=== PATIENT | male | born 1935 | race Caucasian/White ===

== ENCOUNTER → 2018-06-09 07:36 | Outpatient (CLI) | payer MEDICARE, OTHER, SELFPAY ==
[2018-06-09 08:48] LABS: Add Manual Diff / Slide Review NO; Basophils Percent Auto 0.5 % (0-2); Eosinophils Percent Auto 8.2 % (2-4); Hematocrit 46.5 % (41-53); Hemoglobin 15.9 g/dL (13.5-17.5); Lymphocytes Percent Auto 21.2 % (25-40); Mean Corpuscular HGB Conc 34.1 % (30-36); Mean Corpuscular Volume 93.8 fL (80-100); Neutrophils Absolute Auto 3700 /uL (3000-5900); Neutrophils Percent Auto 59.1 % (50-75); Platelet Count 131 X10^3/uL (150-400); Red Blood Cell Count 4.96 X10^6/uL (4.5-5.9); Red Cell Distribution Width 13.2 % (11.6-14.8); White Blood Cell Count 6.3 X10^3/uL (4.5-11.0)
[2018-06-09 08:56] LABS: Alanine Aminotransferase 32 IU/L (21-72); Albumin 4.4 g/dL (3.5-5.0); Albumin Globulin Ratio 1.4 (1.0-2.8); Alkaline Phosphatase 76 U/L (38-126); Aspartate Aminotransferase 34 IU/L (17-59); BUN Creatinine Ratio 18.2 (6-22); Bilirubin Total 1.1 mg/dL (0.2-1.3); Blood Urea Nitrogen 20 mg/dL (9-20); Calcium 9.7 mg/dL (8.4-10.2); Carbon Dioxide 32 mmol/L (22-32); Chloride 101 mmol/L (98-107); Cholesterol 144 mg/dL (140-199); Estimated Glomerular Filt Rate > 60.0 mL/min (>60); Globulin 3.1 g/dL (1.7-4.1); Glucose 83 mg/dL (80-110); HDL Cholesterol 46 mg/dL (40-60); HEMOLYSIS 22 (0-50); LDL Cholesterol Calculated 83 mg/dL (<100); Potassium 4.1 mmol/L (3.4-5.1); Sodium 142 mmol/L (137-145); Total Protein 7.5 g/dL (6.3-8.2); Triglycerides 74 mg/dL (35-150)
[2018-06-09 09:22] LABS: Prostate Specific Antigen Scrn 1.59 ng/mL (0.1-4.0)
[2018-06-09 09:42] LABS: Thyroid Stimulating Hormone 1.16 uIU/mL (0.47-4.68)
== END ==
PROVIDERS: Family Provider Family Medicine; PCP Family Medicine; Visit Provider Family Medicine
DX: E78.5 Hyperlipidemia, unspecified (principal); I10 Essential (primary) hypertension; I25.10 Atherosclerotic heart disease of native coronary artery without angina pectoris; N19 Unspecified kidney failure; N40.0 Benign prostatic hyperplasia without lower urinary tract symptoms; Z12.5 Encounter for screening for malignant neoplasm of prostate
CPT/HCPCS: 36415; 80053; 80061; 84443; 85025; G0103

== ENCOUNTER → 2018-08-22 14:19 | Outpatient (CLI) | payer MEDICARE, OTHER, SELFPAY ==
[2018-08-22 15:21] LABS: Add Manual Diff / Slide Review NO; Basophils Percent Auto 0.6 % (0-2); Eosinophils Percent Auto 6.1 % (2-4); Hemoglobin 14.4 g/dL (13.5-17.5); Lymphocytes Percent Auto 22.8 % (25-40); Mean Corpuscular HGB Conc 33.5 % (30-36); Mean Corpuscular Hemoglobin 31.4 PG (26-34); Mean Corpuscular Volume 93.7 fL (80-100); Monocytes Percent Auto 11.4 % (3-14); Neutrophils Absolute Auto 3700 /uL (3000-5900); Neutrophils Percent Auto 59.1 % (50-75); Platelet Count 157 X10^3/uL (150-400); Red Blood Cell Count 4.59 X10^6/uL (4.5-5.9); Red Cell Distribution Width 12.9 % (11.6-14.8); White Blood Cell Count 6.3 X10^3/uL (4.5-11.0)
[2018-08-22 15:50] LABS: Alanine Aminotransferase 26 IU/L (21-72); Albumin Globulin Ratio 1.3 (1.0-2.8); Alkaline Phosphatase 64 U/L (38-126); Aspartate Aminotransferase 24 IU/L (17-59); BUN Creatinine Ratio 22.5 (6-22); Bilirubin Total 0.7 mg/dL (0.2-1.3); Blood Urea Nitrogen 27 mg/dL (9-20); Carbon Dioxide 26 mmol/L (22-32); Chloride 103 mmol/L (98-107); Cholesterol 161 mg/dL (140-199); Glucose 98 mg/dL (80-110); HDL Cholesterol 39 mg/dL (40-60); HEMOLYSIS < 15 (0-50); LDL Cholesterol Calculated 102 mg/dL (<100); Potassium 4.2 mmol/L (3.4-5.1); Sodium 140 mmol/L (137-145); Triglycerides 98 mg/dL (35-150)
[2018-08-22 16:20] LABS: Thyroid Stimulating Hormone 0.84 uIU/mL (0.47-4.68)
== END ==
PROVIDERS: Family Provider Family Medicine; PCP Family Medicine; Visit Provider Family Medicine
DX: R42 Dizziness and giddiness (principal); E78.2 Mixed hyperlipidemia; Z79.899 Other long term (current) drug therapy
CPT/HCPCS: 36415; 80053; 80061; 84443; 85025

== ENCOUNTER 2019-03-02 12:21 | Day surgery (SDC) | payer MEDICARE, OTHER, SELFPAY ==
[2019-03-02] MEDS: SODIUM CHLORIDE 0.9% 1,000 ML 200 ML IV (12:46)
[2019-03-02 12:57] VITALS: BP 164/89; PULSE 73; RESP 16; TEMP 36.6; O2SAT 98; BMI 23.3
--- NOTE | 2019-03-02 14:14 | PM.HP.1 ---
History of Present Illness Date Patient Seen: 03/02/19 Time Patient Seen: 13:20 Chief complaint: [id number] Narrative: A 3-year-old gentleman here for screening colonoscopy. No history of colon polyps, no personal history of colon cancer Suspected mother may have had colon cancer -unsure Has been less than 10 years since last colonoscopy The tolerated prep Patient History Medical History Cancer of kidney (Chronic ~1999) Coronary artery disease (Chronic ~2000) Melanoma (Chronic ~2014) Vertigo (Chronic ~2015) Surgical History Anesthesia (Resolved) History of kidney surgery (Resolved ~1999) Surgical procedure planned (Resolved ~2000) Family History (Updated 06/14/17 @ 00:00 by Conversion Provider) Brother Heart disease Father Heart disease Mother Stroke Social History household members: spouse Smoking Status: Never smoker Family & Social History Family History Brother Heart disease Father Heart disease Mother Stroke Social History: household members spouse Tobacco & Substance use: Smoking Status Never smoker Meds Home Medications Medication Instructions Recorded Confirmed Type ASPIRIN (Aspir-Low) 81 mg PO Q DAY #0 07/17/11 03/02/19 History Calcium/Vitamin D (#CALCIUM + D 1 tab PO DAILY #0 07/17/11 03/02/19 History 600 MG-200 IU) pravastatin 10 mg tablet 10 mg PO DAILY #90 tab 09/29/18 03/02/19 Rx lisinopril [Prinivil] 20 mg PO Q DAY #90 tab 11/28/18 03/02/19 Rx Allergies Allergy/AdvReac Type Severity Reaction Status Date / Time No Known Drug Allergies Allergy Unknown Verified 03/02/19 13:10 [NO KNOWN DRUG ALLERGIES] Review of Systems Constitutional Constitutional: Denies fever(s) Eyes Eyes: Denies bulging eyes ENT Ears, Nose, Mouth, and Throat: No lip swelling Cardiovascular Cardiovascular: Denies generalize swelling Respiratory Respiratory: Denies stridor Gastrointestinal Gastrointestinal: Denies coffee ground emesis Musculoskeletal Musculoskeletal: Denies loss of height Integumentary/Breasts Skin/Breast: Denies wounds Neurologic Neurologic: Denies abnormal speech and Denies confusion Psychiatric Psychiatric: Denies confusion Endocrine Endocrine: Denies deepening of the voice Hematologic/Lymphatic Hematologic/Lymphatic: Denies lymphadenopathy Allergic/Immunologic Allergic/Immunologic: Denies lip swelling Exam Vital Signs (past 8 hours): - 03/02/19 12:57 Temperature 97.8 F Pulse Rate 73 Respiratory Rate 16 Blood Pressure 164/89 H Pulse Oximetry 98 Oxygen Delivery Method Room Air Const General: cooperative and healthy appearing Orientation: alert HENMT Head: normal to inspection Nose: nares normal Mouth: oral mucosae normal and lip normal Eyes Eyelids: eyelids normal Conjunctivae: conjunctivae normal Sclera: sclerae normal Neck Neck: supple and other (No thyromegally) Chest Chest: other (LCTAB , regular respiratory effort) Cardio Rhythm: regular rhythm Heart Sounds: S1 normal, S2 normal, no gallops, no murmurs and no rubs GI Other: Abdomen soft nontender nondistended well healed port site incisional scars Skin General: no rashes or lesions noted Neuro General: alert and awake Psych Appearance: grossly normal Affect: normal affect Assessment & Plan Assessment & Plan narrative: Screening colonoscopy today risks of endoscopy including bleeding, infection, perforation, non identification of lesion, possible , hypoxia all discussed Patient ready to proceed
[2019-03-02] MEDS: MIDAZOLAM 5 MG/5 ML VIAL IV (15:06)
[2019-03-02] MEDS: fentaNYL 250 MCG/5 ML INJ IV (15:07)
--- NOTE | 2019-03-02 15:30 | PM.OP.ENDO ---
Operative Date/Time/Diagnoses Date of procedure: 03/02/19 Time of procedure: 15:00 Pre-op diagnosis: Screening colonoscopy Post-op diagnosis: same Procedure & Clinicians Study performed: Screening colonoscopy Same procedure as scheduled: Yes Indications: Average risk colorectal cancer Surgeon: Chevy Mariscal Procedure Notes SCOAP/Timeout: Completed Procedure in detail: Patient was brought to the endoscopy suite, he was sedated with midazolam and fentanyl, prior to this a time-out was completed. a digital rectal exam was performed there were no lesions within the rectal vault. The anal derm appeared healthy. 160 cm colonoscope was advanced through the rectum up through the rectosigmoid junction through the transverse colon. There was 2 or 3 diverticula seen. We advanced up the left colon through the splenic flexure and into the triangular folds of the transverse colon. The hepatic flexure was quite difficult to negotiate but were able to. The cecum was reached appendiceal orifice was clearly identified along with the [place] foot. Scope withdrawn slowly. no lesions were identified Prep adequate Scope withdrawal time: 20 min Sedation minutes: 75 Findings: diverticulosis Specimen(s): none sent Complications: none Impression: Unconcerning screening colonoscopy Recommendations: Other recommendation (Given this patient's age is 83, absence of pathology colonoscopy today-does not need further screening colonoscopy) Follow up: as needed Disposition: PACU
--- NOTE | 2019-03-02 15:35 | P.OP.ENDO_ITS ---
Operative Date/Time/Diagnoses Date of procedure: 03/02/19 Time of procedure: 15:00 Pre-op diagnosis: Screening colonoscopy Post-op diagnosis: same Procedure & Clinicians Study performed: Screening colonoscopy Same procedure as scheduled: Yes Indications: Average risk colorectal cancer Surgeon: Chevy Mariscal Procedure Notes SCOAP/Timeout: Completed Procedure in detail: Patient was brought to the endoscopy suite, he was sedated with midazolam and fentanyl, prior to this a time-out was completed. a digital rectal exam was performed there were no lesions within the rectal vault. The anal derm appeared healthy. 160 cm colonoscope was advanced through the rectum up through the rectosigmoid junction through the transverse colon. There was 2 or 3 diverticula seen. We advanced up the left colon through the splenic flexure and into the triangular folds of the transverse colon. The hepatic flexure was quite difficult to negotiate but were able to. The cecum was reached appendiceal orifice was clearly identified along with the [place] foot. Scope withdrawn slowly. no lesions were identified Prep adequate Scope withdrawal time: 20 min Sedation minutes: 75 Findings: diverticulosis Specimen(s): none sent Complications: none Impression: Unconcerning screening colonoscopy Recommendations: Other recommendation (Given this patient's age is 83, absence of pathology colonoscopy today-does not need further screening colonoscopy) Follow up: as needed Disposition: PACU
[2019-03-02 16:01] VITALS: BP 131/70; PULSE 77; RESP 16; TEMP 36.2; O2SAT 99
--- NOTE | 2019-03-02 16:17 | SUR.PHASEII ---
Pt bypassed PACU, soft belly, dressed when ready and left when ready and in stable condition.
== END 2019-03-02 16:10 | disposition home or self-care (01) ==
PROVIDERS: PCP Family Medicine; Visit Provider Surgery
PROC: 0DJD8ZZ Inspection of Lower Intestinal Tract, Via Natural or Artificial Opening Endoscopic (ICD-10-PCS; CPT 45378; principal; 2019-03-02 13:45)
DX: Z12.11 Encounter for screening for malignant neoplasm of colon (principal); I25.10 Atherosclerotic heart disease of native coronary artery without angina pectoris; K57.30 Diverticulosis of large intestine without perforation or abscess without bleeding
CPT/HCPCS: G0121; 99152; 99153; J2250; J3010

== ENCOUNTER → 2019-03-13 11:35 | Outpatient (CLI) | payer MEDICARE, OTHER, SELFPAY ==
--- NOTE | 2019-03-13 11:38 | DI.RAD.S_ITS ---
PROCEDURE: XR CHEST 2V INDICATIONS: costchondritis TECHNIQUE: 2 views of the chest were acquired. COMPARISON: [facility], CHEST 2 VIEW, 02/21/2016, 7:54. [facility], CHEST 2 VIEW, 02/15/2014, 21:14. FINDINGS: Surgical changes and devices: None. Lungs and pleura: Lungs are abnormal with a mild degree of interstitial prominence previously present potentially reflecting prior smoking history. No pleural effusions or pneumothorax. Mediastinum: Mediastinal contours are normal. Heart size is normal. Bones and chest wall: No suspicious bony abnormalities. Soft tissues appear unremarkable. IMPRESSION: No source of chest pain is found. Mild interstitial prominence stable over time, perhaps from prior smoking. Dictated by: Martín England M.D. on 03/13/2019 at 13:10 Approved by: Martín England M.D. on 03/13/2019 at 13:11
== END ==
PROVIDERS: PCP Family Medicine; Visit Provider Family Medicine
DX: M94.0 Chondrocostal junction syndrome [Tietze] (principal)
CPT/HCPCS: 71046

== ENCOUNTER → 2019-03-20 07:28 | Outpatient (CLI) | payer MEDICARE, OTHER, SELFPAY ==
[2019-03-20 09:38] LABS: Alanine Aminotransferase 24 IU/L (21-72); Albumin Globulin Ratio 1.4 (1.0-2.8); Alkaline Phosphatase 74 U/L (38-126); Aspartate Aminotransferase 24 IU/L (17-59); Bilirubin Total 0.9 mg/dL (0.2-1.3); Blood Urea Nitrogen 24 mg/dL (9-20); Calcium 9.7 mg/dL (8.4-10.2); Carbon Dioxide 30 mmol/L (22-32); Chloride 103 mmol/L (98-107); Cholesterol 161 mg/dL (140-199); Estimated Glomerular Filt Rate 57.8 mL/min (>60); Globulin 2.9 g/dL (1.7-4.1); Glucose 77 mg/dL (80-110); HDL Cholesterol 42 mg/dL (40-60); HEMOLYSIS < 15 (0-50); LDL Cholesterol Calculated 106 mg/dL (<100); Potassium 4.3 mmol/L (3.4-5.1); Sodium 140 mmol/L (137-145); Total Protein 6.9 g/dL (6.3-8.2); Triglycerides 65 mg/dL (35-150)
== END ==
PROVIDERS: PCP Family Medicine; Visit Provider Internal Medicine Cardiovascular Disease
DX: E78.00 Pure hypercholesterolemia, unspecified (principal)
CPT/HCPCS: 36415; 80053; 80061

== ENCOUNTER → 2019-04-27 07:32 | Outpatient (CLI) | payer MEDICARE, OTHER, SELFPAY ==
[2019-04-27 08:43] LABS: Add Manual Diff / Slide Review NO; Basophils Absolute Auto 0 /uL (0-100); Basophils Percent Auto 0.7 % (0-2); Eosinophils Absolute Auto 500 /uL (0-450); Eosinophils Percent Auto 7.8 % (2-4); Hematocrit 46.5 % (41-53); Hemoglobin 15.6 g/dL (13.5-17.5); Lymphocytes Absolute Auto 1300 /uL (1100-4500); Lymphocytes Percent Auto 22.8 % (25-40); Mean Corpuscular HGB Conc 33.5 % (30-36); Mean Corpuscular Hemoglobin 31.6 PG (26-34); Mean Corpuscular Volume 94.2 fL (80-100); Monocytes Absolute Auto 700 /uL (0-900); Monocytes Percent Auto 12.5 % (3-14); Neutrophils Absolute Auto 3200 /uL (1500-7000); Neutrophils Percent Auto 56.2 % (50-75); Platelet Count 149 X10^3/uL (150-400); Red Blood Cell Count 4.94 X10^6/uL (4.5-5.9); Red Cell Distribution Width 12.9 % (11.6-14.8); White Blood Cell Count 5.8 X10^3/uL (4.5-11.0)
[2019-04-27 09:27] LABS: Alanine Aminotransferase 25 IU/L (21-72); Albumin 4.1 g/dL (3.5-5.0); Albumin Globulin Ratio 1.4 (1.0-2.8); Alkaline Phosphatase 69 U/L (38-126); Amylase 79 U/L (30-110); Aspartate Aminotransferase 27 IU/L (17-59); BUN Creatinine Ratio 17.3 (6-22); Bilirubin Total 0.8 mg/dL (0.2-1.3); Blood Urea Nitrogen 19 mg/dL (9-20); Calcium 9.5 mg/dL (8.4-10.2); Carbon Dioxide 32 mmol/L (22-32); Chloride 102 mmol/L (98-107); Estimated Glomerular Filt Rate > 60.0 mL/min (>60); Glucose 83 mg/dL (80-110); HEMOLYSIS < 15 (0-50); Lipase 89 U/L (23-300); Potassium 4.6 mmol/L (3.4-5.1); Sodium 141 mmol/L (137-145); Total Protein 7.1 g/dL (6.3-8.2)
== END ==
PROVIDERS: PCP Family Medicine; Visit Provider Family Medicine
DX: M54.5 Low back pain (principal); R10.9 Unspecified abdominal pain; Z85.528 Personal history of other malignant neoplasm of kidney; Z90.5 Acquired absence of kidney
CPT/HCPCS: 36415; 80053; 82150; 83013; 83690; 85025

== ENCOUNTER → 2019-05-01 09:07 | Outpatient (CLI) | payer MEDICARE, OTHER, SELFPAY ==
--- NOTE | 2019-05-01 09:08 | DI.US.S_ITS ---
PROCEDURE: US ABDOMEN COMPLETE INDICATIONS: STOMACH PAIN, LOW BACK PAIN, HX RENAL CANCER TECHNIQUE: Real-time scanning was performed of the abdominal and retroperitoneal organs, with image documentation. COMPARISON: [facility], CT, KIDNEY/ URETER/BLADDER, 04/13/2014, 7:23. [facility], US, ABDOMEN COMPLETE, 07/08/2011, 9:07. FINDINGS: Liver: Liver is normal in size and homogeneous in echotexture. Solitary hyperechoic focus present within the right lobe measuring 1.7 x 1.4 x 2.1 cm. Simple left hepatic lobe lateral cyst measuring 16 mm. Gallbladder: No gallstones identified. Normal gallbladder wall. No pericholecystic fluid. Negative sonographic Abrams sign. Biliary ducts: Intrahepatic bile ducts are non-dilated. Extrahepatic bile duct caliber measures 4.0 mm. Normal is 6-7 mm or less in diameter, or 10 mm or less post-cholecystectomy. Pancreas: Not well-visualized. Spleen: Spleen is normal in size and homogeneous in echotexture. Kidneys: Left kidney surgically absent. Normal right kidney measured 13.3 cm. Simple right renal cyst measuring 19 mm. Aorta: 3.1 cm x 3.1 cm descending distal abdominal aortic aneurysm is unchanged. Iliacs: Proximal common iliac arteries are normal in caliber at less than 2.5 cm. IVC: Intrahepatic inferior vena cava is patent. Miscellaneous: No free abdominal fluid. IMPRESSION: 1. Descending distal abdominal aneurysm unchanged from prior CT scan dated 04/13/14. 2. 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 Recommend sequential follow up sonography at 6, 12 and 24 month intervals for surveillance. 3. Hepatic and right renal cysts. Dictated by: Jignesh Jordan [facility] Interpreted: Martín England MD on 05/01/2019 at 12:58 Approved by: Martín England M.D. on 05/01/2019 at 17:17
== END ==
PROVIDERS: PCP Family Medicine; Visit Provider Family Medicine
DX: R10.9 Unspecified abdominal pain (principal); I71.4 Abdominal aortic aneurysm, without rupture; N28.1 Cyst of kidney, acquired; K76.89 Other specified diseases of liver; M54.5 Low back pain; Z85.528 Personal history of other malignant neoplasm of kidney; Z90.5 Acquired absence of kidney
CPT/HCPCS: 76700

== ENCOUNTER → 2019-06-15 10:03 | Outpatient (CLI) | payer MEDICARE, OTHER, SELFPAY ==
--- NOTE | 2019-06-15 10:46 | DI.CT.S_ITS ---
PROCEDURE: CT ABDOMEN PELVIS W CON INDICATIONS: abd pain, h/o renal cancer TECHNIQUE: After the administration of oral and intravenous contrast, 5 mm thick sections acquired from the diaphragms to the symphysis. 5 mm thick coronal and sagittal reformats were performed. For radiation dose reduction, the following was used: automated exposure control, adjustment of mA and/or kV according to patient size. COMPARISON: [facility], CT, KIDNEY/ URETER/BLADDER, 04/13/2014, 7:23. FINDINGS: Image quality: Excellent. ABDOMEN: Lung bases: Sub-5 mm multiple pulmonary nodules seen within the right lung base appear grossly unchanged since 04/13/14. Heart size is normal. Solid organs: Hepatic steatosis. Scattered subcentimeter hepatic hypodensities, presumably cysts or hemangiomas. Some of these are stable, however are not well-seen on the prior study. Gallbladder contracted otherwise unremarkable. Biliary system is non-dilated. Pancreas enhances normally. Spleen is normal in size and enhancement. No adrenal nodules. Left kidney surgically absent. Right kidney unremarkable. No hydronephrosis. Peritoneum and bowel: Stomach, small bowel, and colon loops are normal in caliber and wall thickness. No free fluid or air. Questionable distal esophageal wall thickening however the appearance is largely unchanged since prior study and could be falsely accentuated due to decompression. Nodes and vessels: No retroperitoneal or mesenteric adenopathy. Mild aneurysmal dilatation of the distal abdominal aorta measuring 3.0 cm just above the bifurcation although grossly unchanged Miscellaneous: No ventral hernias. PELVIS: Possible mild bladder wall thickening with circumferential appearance however this is probably unchanged since prior study Miscellaneous: No inguinal hernias or adenopathy. Large lytic lesion present within the posteromedial left ilium, with sclerotic margins measuring 3.8 x 2.5 cm. Additional lytic lesion present in the right posteromedial ilium on image 58 series 2 IMPRESSION: Interval appearance of multiple lytic lesions within the pelvis although some of these demonstrate sclerotic margins and are of unknown age. Nonetheless findings are concerning for osseous metastases. Recommend further evaluation with pelvic MRI with and without contrast and if clinically indicated PET/CT. If prior comparison studies are available more current than 2013, these would be most helpful. Elsewhere, grossly stable examination without specific evidence for active metastatic disease. Status post left nephrectomy. Multiple hepatic lesions, too small to characterize and statistically small cysts or hemangiomas although recommend attention on subsequent followup examinations. Additional chronic and incidental findings as above. Dictated by: Lele Bello M.D. on 06/15/2019 at 12:46 Approved by: Lele Bello M.D. on 06/15/2019 at 12:59
[2019-06-15 10:49] LABS: Blood Urea Nitrogen 22 mg/dL (9-20); Calcium 9.6 mg/dL (8.4-10.2); Carbon Dioxide 29 mmol/L (22-32); Chloride 102 mmol/L (98-107); Estimated Glomerular Filt Rate > 60.0 mL/min (>60); Glucose 88 mg/dL (80-110); HEMOLYSIS < 15 (0-50); Potassium 4.8 mmol/L (3.4-5.1); Sodium 140 mmol/L (137-145)
== END ==
PROVIDERS: PCP Family Medicine; Visit Provider Family Medicine
DX: R10.9 Unspecified abdominal pain (principal); Z85.528 Personal history of other malignant neoplasm of kidney; Z01.812 Encounter for preprocedural laboratory examination; K76.9 Liver disease, unspecified
CPT/HCPCS: 36415; 74177; 80048; Q9967

== ENCOUNTER → 2019-08-24 09:40 | Oncology outpatient (ONC) | payer MEDICARE, OTHER, SELFPAY ==
[2019-08-03 14:22] VITALS: BP 133/80; PULSE 67; RESP 18; TEMP 36.9; O2SAT 98
--- NOTE | 2019-08-03 14:42 | ONC.CONS ---
History of Present Illness - Data of Consult Patient: new to practice Consult date: 08/03/19 Requesting Physician: Huber Baltazar MD Primary Care Provider: Huber Baltazar MD - Consult Narrative Reason for consult: Lytic lesions in pelvis Narrative: Nilesh Rodriguez is a 83 year old male. He was referred here by Dr. Baltazar because of recent CT scan showed lytic lesions in the pelvis, and remote history of left kidney cancer. About in 1999, he had US of abdomen for something else, but it incidentally noted a left kidney mass. He then underwent radical left nephrectomy at [facility]. No adjuvant or chemotherapy afterwards. 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 In March 2019, he saw Dr Baltazar for abdominal, shoulder and occasional back pain. CT abd/pelvis on 06/15/2019 showed interval appearance of multiple lytic lesions within the pelvis although some of these demonstrates sclerotic margins and ar of unknown age. Left nephrectomy noted. PET scan on 06/28/2019 showed no FDG uptake associated with the lytic lesions, and no abnormal FDG uptake in other locations. He has good energy, good appetite, wt stable, no sob, no cp, no abdominal pain, no diarrhea or constipation. He does not have any bone pain. No rashes. Home Medications and Allergies Home Medications Medication Instructions Recorded Confirmed Type ASPIRIN (Aspir-Low) 81 mg PO Q DAY #0 07/17/11 08/03/19 History lisinopril [Prinivil] 20 mg PO Q DAY #90 tab 11/28/18 08/03/19 Rx pravastatin 10 mg tablet 40 mg PO DAILY tab 07/20/19 08/03/19 History Allergies Allergy/AdvReac Type Severity Reaction Status Date / Time No Known Drug Allergies Allergy Unknown Verified 07/20/19 09:17 [NO KNOWN DRUG ALLERGIES] Medical History - Medical, Surgical, Family History Medical History: Medical History (Last Reviewed 03/02/19 @ 14:15 by Chevy Mariscal MD) Cancer of kidney Onset Date: ~1999 Coronary artery disease Onset Date: ~2000 Melanoma Onset Date: ~2014 Vertigo Onset Date: ~2015 Surgical History: Surgical History (Last Reviewed 03/02/19 @ 14:15 by Chevy Mariscal MD) Anesthesia History of kidney surgery Onset Date: ~1999 Surgical procedure planned Onset Date: ~2000 Family History: Family History (Last Updated 08/03/19 @ 14:59 by Thania Miller MD) Brother Heart disease Father Heart disease Mother Stroke Colon cancer - Social History Smoking Status: Former smoker (quitted smoking 1975) Substance Use Type: does not use Alcohol Intake: current Review of Systems - Patient Self-Reported Symptoms SR Gastrointestinal issues: Constipation All systems PM: reviewed and no additional remarkable complaints except as stated Exam Vital signs: Vital Signs Temp Pulse Resp BP Pulse Ox 08/03/19 14:22 98.4 F 67 18 133/80 98 Intake and Output 08/02/19 08/03/19 08/03/19 23:59 07:59 15:59 Other: Weight 83.6 kg Patient Weight 08/03/19 23:59 Weight 83.6 kg - Constitutional positive no acute distress, positive average body habitus, positive cooperative - Routine HEENT Exam Head: Present: normocephalic, atraumatic Eye: Present: EOMI, PERRL, normal accommodation. Absent: conjunctival icterus ENT: Present: mucous membranes moist - Routine Neck Exam Present: supple. Absent: lymphadenopathy, thyromegaly - Routine Chest/Breast/Axilla Exam Axillae: Absent: lymphadenopathy - Routine Respiratory Exam Present: Clear to auscultation bilaterally. Absent: wheezes - Routine Cardiovascular Exam Present: RRR, S1, S2. Absent: murmur, gallop, rubs - Routine Abdominal Exam Present: soft. Absent: tenderness, distended Palpation/Percussion: Absent: hepatomegaly, splenomegaly - Routine Extremities Exam Absent: edema - Routine Neurological Exam Present: alert, oriented X3. Absent: CN II-XII intact, sensory deficit, motor deficit - Routine Psychiatric Exam Present: normal affect, normal thought process Results - Labs Laboratory Last Values WBC 6.6 X10^3/uL (4.5-11.0) 08/03/19 15:35 RBC 4.84 X10^6/uL (4.5-5.9) 08/03/19 15:35 Hgb 15.6 g/dL (13.5-17.5) 08/03/19 15:35 Hct 44.8 % (41-53) 08/03/19 15:35 MCV 92.6 fL (80-100) 08/03/19 15:35 MCH 32.3 PG (26-34) 08/03/19 15:35 MCHC 34.9 % (30-36) 08/03/19 15:35 RDW 12.8 % (11.6-14.8) 08/03/19 15:35 Plt Count 151 X10^3/uL (150-400) 08/03/19 15:35 Neut % (Auto) 68.6 % (50-75) 08/03/19 15:35 Lymph % (Auto) 14.9 % (25-40) L 08/03/19 15:35 [place] % (Auto) 12.9 % (3-14) 08/03/19 15:35 Eos % (Auto) 3.0 % (2-4) 08/03/19 15:35 Baso % (Auto) 0.6 % (0-2) 08/03/19 15:35 Neut # (Auto) 4500 /uL (7570-1317) 08/03/19 15:35 Lymph # (Auto) 1000 /uL (9475-9230) L 08/03/19 15:35 [place] # (Auto) 900 /uL (0-900) 08/03/19 15:35 Eos # (Auto) 200 /uL (0-450) 08/03/19 15:35 Baso # (Auto) 0 /uL (0-100) 08/03/19 15:35 Sodium 140 mmol/L (137-145) 08/03/19 15:35 Potassium 4.2 mmol/L (3.4-5.1) 08/03/19 15:35 Chloride 100 mmol/L (98-107) 08/03/19 15:35 Carbon Dioxide 29 mmol/L (22-32) 08/03/19 15:35 BUN 22 mg/dL (9-20) H 08/03/19 15:35 Creatinine 1.10 mg/dL (0.66-1.25) 08/03/19 15:35 Estimated GFR > 60.0 mL/min (>60) 08/03/19 15:35 BUN/Creatinine Ratio 20.0 (6-22) 08/03/19 15:35 Glucose 105 mg/dL (80-110) 08/03/19 15:35 Calcium 9.9 mg/dL (8.4-10.2) 08/03/19 15:35 Total Bilirubin 0.9 mg/dL (0.2-1.3) 08/03/19 15:35 AST 30 IU/L (17-59) 08/03/19 15:35 ALT 35 IU/L (21-72) 08/03/19 15:35 Alkaline Phosphatase 73 U/L (38-126) 08/03/19 15:35 Lactate Dehydrogenase 458 U/L (313-618) 08/03/19 15:35 Total Protein 7.7 g/dL (6.3-8.2) 08/03/19 15:35 Albumin 4.5 g/dL (3.5-5.0) 08/03/19 15:35 Globulin 3.2 g/dL (1.7-4.1) 08/03/19 15:35 Albumin/Globulin Ratio 1.4 (1.0-2.8) 08/03/19 15:35 Prostate Specific Ag 1.90 ng/mL (0.10-4.00) 08/03/19 15:35 - Imaging Additional studies: Procedures Injection or infusion of other therapeutic or prophylactic substance (04/13/14) Insertion of intraocular lens prosthesis at time of cataract extraction, one-stage (08/16/12) Phacoemulsification and aspiration of cataract (08/16/12) Assessment and Plan (1) Lytic bone lesion of hip 83-year-old gentleman with remote history of left kidney cancer status post left radical nephrectomy (1999) and history of skin melanoma of right leg status post wide local excision. Recent follow-up showed a lytic lesions on CT scan in the pelvic bone. The lytic lesion seen on the CT scans are not hypermetabolic active on follow-up PET scan. I talked with the patient that it is very unlikely that these lytic bone lesions are malignant given negative PET scan. I will proceed with screening laboratory tests to evaluate for possible multiple myeloma and or prostate cancer. Plan: CBC, CMP, SPEP, SFLC, PSA RTC in 3 weeks to review the resutgls. (2) History of kidney cancer About in 1999, he had US of abdomen for something else, but it incidentally noted a left kidney mass. He then underwent radical left nephrectomy at [facility]. No adjuvant or chemotherapy afterwards. Plan: No clear evidence to suggest recurrence. Will continue surveillance. (3) History of malignant melanoma of skin Skin melanoma involving right posterior calf and right shoulder status post WLE, about in 2017. No clear evidence to suggest recurrence. Will continue current surveillance.
[2019-08-03 15:59] LABS: Add Manual Diff / Slide Review NO; Basophils Absolute Auto 0 /uL (0-100); Basophils Percent Auto 0.6 % (0-2); Eosinophils Absolute Auto 200 /uL (0-450); Hematocrit 44.8 % (41-53); Hemoglobin 15.6 g/dL (13.5-17.5); Lymphocytes Absolute Auto 1000 /uL (1100-4500); Lymphocytes Percent Auto 14.9 % (25-40); Mean Corpuscular HGB Conc 34.9 % (30-36); Mean Corpuscular Hemoglobin 32.3 PG (26-34); Mean Corpuscular Volume 92.6 fL (80-100); Monocytes Absolute Auto 900 /uL (0-900); Monocytes Percent Auto 12.9 % (3-14); Neutrophils Absolute Auto 4500 /uL (1500-7000); Neutrophils Percent Auto 68.6 % (50-75); Platelet Count 151 X10^3/uL (150-400); Red Blood Cell Count 4.84 X10^6/uL (4.5-5.9); Red Cell Distribution Width 12.8 % (11.6-14.8); White Blood Cell Count 6.6 X10^3/uL (4.5-11.0)
[2019-08-03 16:11] LABS: Alanine Aminotransferase 35 IU/L (21-72); Albumin 4.5 g/dL (3.5-5.0); Albumin Globulin Ratio 1.4 (1.0-2.8); Alkaline Phosphatase 73 U/L (38-126); Aspartate Aminotransferase 30 IU/L (17-59); Bilirubin Total 0.9 mg/dL (0.2-1.3); Blood Urea Nitrogen 22 mg/dL (9-20); Calcium 9.9 mg/dL (8.4-10.2); Carbon Dioxide 29 mmol/L (22-32); Chloride 100 mmol/L (98-107); Estimated Glomerular Filt Rate > 60.0 mL/min (>60); Globulin 3.2 g/dL (1.7-4.1); Glucose 105 mg/dL (80-110); HEMOLYSIS < 15 (0-50); Lactate Dehydrogenase 458 U/L (313-618); Potassium 4.2 mmol/L (3.4-5.1); Sodium 140 mmol/L (137-145); Total Protein 7.7 g/dL (6.3-8.2)
[2019-08-05 15:56] LABS: Free Kappa Light Chain 24.4 mg/L (3.3-19.4); Free Lambda 20.3 mg/L (5.7-26.3)
[2019-08-05 22:05] LABS: Albumin 4.2 g/dL (3.8-4.8); Alpha 1 Globulin 0.3 g/dL (0.2-0.3); Alpha 2 Globulin 0.7 g/dL (0.5-0.9); Beta 1 Globulin 0.5 g/dL (0.4-0.6); Gamma Globulin 1.1 g/dL (0.8-1.7); Protein, Total 7.3 g/dL (6.1-8.1)
[2019-08-24 09:46] VITALS: BP 152/80; PULSE 68; RESP 18; TEMP 36.8; O2SAT 98
--- NOTE | 2019-08-24 10:06 | ONC.PN ---
PN -Subjective Interval history: ID/CC: 83 year old with pelvic bone lytic lesion of unknown etiology History of Present Illness Nilesh Rodriguez is a 83 year old male. He was referred here by Dr. Baltazar because of recent CT scan showed lytic lesions in the pelvis, and remote history of left kidney cancer. About in 1999, he had US of abdomen for something else, but it incidentally noted a left kidney mass. He then underwent radical left nephrectomy at [facility]. No adjuvant or chemotherapy afterwards. 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 In March 2019, he saw Dr Baltazar for abdominal, shoulder and occasional back pain. CT abd/pelvis on 06/15/2019 showed interval appearance of multiple lytic lesions within the pelvis although some of these demonstrates sclerotic margins and are of unknown age. Left nephrectomy noted. PET scan on 06/28/2019 showed no FDG uptake associated with the lytic lesions, and no abnormal FDG uptake in other locations. He has good energy, good appetite, wt stable, no sob, no cp, no abdominal pain, no diarrhea or constipation. He does not have any bone pain. No rashes. Interim Events: Once again, patient denies any clinical symptoms. He is here to review the laboratory test results. Today he brought some medical records. He said there is no evidence of melanoma. 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 - Patient Self-Reported Symptoms SR Gastrointestinal issues: Constipation SR Neuro issues: Lightheaded/dizzy - Additional ROS All systems PM: reviewed and no additional remarkable complaints except as stated Home Medications and Allergies Home Medications Medication Instructions Recorded Confirmed Type ASPIRIN (Aspir-Low) 81 mg PO Q DAY #0 07/17/11 08/03/19 History lisinopril [Prinivil] 20 mg PO Q DAY #90 tab 11/28/18 08/03/19 Rx pravastatin 10 mg tablet 40 mg PO DAILY tab 07/20/19 08/03/19 History Allergies Allergy/AdvReac Type Severity Reaction Status Date / Time No Known Drug Allergies Allergy Unknown Verified 07/20/19 09:17 [NO KNOWN DRUG ALLERGIES] Exam Vital signs: Vital Signs Temp Pulse Resp BP Pulse Ox 08/24/19 09:46 98.2 F 68 18 152/80 H 98 Intake and Output 08/23/19 08/24/19 08/24/19 23:59 07:59 15:59 Other: Weight 83.8 kg Patient Weight 08/24/19 23:59 Weight 83.8 kg - Constitutional positive no acute distress, positive obese, positive cooperative - Routine HEENT Exam Head: Present: normocephalic, atraumatic Eye: Present: EOMI, PERRL, normal accommodation. Absent: conjunctival icterus ENT: Present: mucous membranes moist - Routine Neck Exam Present: supple. Absent: lymphadenopathy, thyromegaly - Routine Chest/Breast/Axilla Exam Breast: Absent: tenderness - Routine Respiratory Exam Present: Clear to auscultation bilaterally. Absent: wheezes - Routine Cardiovascular Exam Present: RRR, S1, S2. Absent: murmur, gallop, rubs - Routine Abdominal Exam Present: soft. Absent: tenderness, distended, organomegaly - Routine Extremities Exam Absent: edema - Routine Neurological Exam Present: alert, oriented X3, CN II-XII intact. Absent: sensory deficit, motor deficit - Routine Psychiatric Exam Present: normal affect, cooperative Results - Labs Laboratory Last Values WBC 6.6 X10^3/uL (4.5-11.0) 08/03/19 15:35 RBC 4.84 X10^6/uL (4.5-5.9) 08/03/19 15:35 Hgb 15.6 g/dL (13.5-17.5) 08/03/19 15:35 Hct 44.8 % (41-53) 08/03/19 15:35 MCV 92.6 fL (80-100) 08/03/19 15:35 MCH 32.3 PG (26-34) 08/03/19 15:35 MCHC 34.9 % (30-36) 08/03/19 15:35 RDW 12.8 % (11.6-14.8) 08/03/19 15:35 Plt Count 151 X10^3/uL (150-400) 08/03/19 15:35 Neut % (Auto) 68.6 % (50-75) 08/03/19 15:35 Lymph % (Auto) 14.9 % (25-40) L 08/03/19 15:35 [place] % (Auto) 12.9 % (3-14) 08/03/19 15:35 Eos % (Auto) 3.0 % (2-4) 08/03/19 15:35 Baso % (Auto) 0.6 % (0-2) 08/03/19 15:35 Neut # (Auto) 4500 /uL (0738-0633) 08/03/19 15:35 Lymph # (Auto) 1000 /uL (6370-0415) L 08/03/19 15:35 [place] # (Auto) 900 /uL (0-900) 08/03/19 15:35 Eos # (Auto) 200 /uL (0-450) 08/03/19 15:35 Baso # (Auto) 0 /uL (0-100) 08/03/19 15:35 Sodium 140 mmol/L (137-145) 08/03/19 15:35 Potassium 4.2 mmol/L (3.4-5.1) 08/03/19 15:35 Chloride 100 mmol/L (98-107) 08/03/19 15:35 Carbon Dioxide 29 mmol/L (22-32) 08/03/19 15:35 BUN 22 mg/dL (9-20) H 08/03/19 15:35 Creatinine 1.10 mg/dL (0.66-1.25) 08/03/19 15:35 Estimated GFR > 60.0 mL/min (>60) 08/03/19 15:35 BUN/Creatinine Ratio 20.0 (6-22) 08/03/19 15:35 Glucose 105 mg/dL (80-110) 08/03/19 15:35 Calcium 9.9 mg/dL (8.4-10.2) 08/03/19 15:35 Total Bilirubin 0.9 mg/dL (0.2-1.3) 08/03/19 15:35 AST 30 IU/L (17-59) 08/03/19 15:35 ALT 35 IU/L (21-72) 08/03/19 15:35 Alkaline Phosphatase 73 U/L (38-126) 08/03/19 15:35 Lactate Dehydrogenase 458 U/L (313-618) 08/03/19 15:35 Serum Total Protein 7.3 g/dL (6.1-8.1) 08/03/19 15:35 Total Protein 7.7 g/dL (6.3-8.2) 08/03/19 15:35 Albumin 4.2 g/dL (3.8-4.8) 08/03/19 15:35 Albumin 4.5 g/dL (3.5-5.0) 08/03/19 15:35 Globulin 3.2 g/dL (1.7-4.1) 08/03/19 15:35 Albumin/Globulin Ratio 1.4 (1.0-2.8) 08/03/19 15:35 Huzrx-5-Fhzbyewwp 0.3 g/dL (0.2-0.3) 08/03/19 15:35 Iitbj-1-Nqzokcqef 0.7 g/dL (0.5-0.9) 08/03/19 15:35 Ahyr-5-Akqftiuq 0.5 g/dL (0.4-0.6) 08/03/19 15:35 Vzvp-1-Alwzauvl 0.5 g/dL (0.2-0.5) 08/03/19 15:35 Gamma Globulins 1.1 g/dL (0.8-1.7) 08/03/19 15:35 Abnorm Protein Band 1 Not Reportable 08/03/19 15:35 Abnorm Protein Band 2 Not Reportable 08/03/19 15:35 Abn Gamma Band 3 Serum Not Reportable 08/03/19 15:35 PEP Comment 08/03/19 15:35 Prostate Specific Ag 1.90 ng/mL (0.10-4.00) 08/03/19 15:35 Free Cuthbert Light Chains 24.4 mg/L (3.3-19.4) H 08/03/19 15:35 Free Lambda Light Chain 20.3 mg/L (5.7-26.3) 08/03/19 15:35 Free [place]bert/Lambda Ratio 1.20 (0.26-1.65) 08/03/19 15:35 - Imaging Additional studies: Procedures Injection or infusion of other therapeutic or prophylactic substance (04/13/14) Insertion of intraocular lens prosthesis at time of cataract extraction, one-stage (08/16/12) Phacoemulsification and aspiration of cataract (08/16/12) Assessment and Plan (1) Lytic bone lesion of hip Overview: 83-year-old gentleman with remote history of left kidney cancer status post left radical nephrectomy (1999) and history of skin melanoma of right leg status post wide local excision. Recent follow-up showed a lytic lesions on CT scan in the pelvic bone. The lytic lesion seen on the CT scans are not hypermetabolic active on follow-up PET scan. Assessment: I reviewed the lab tests with patient. There is no evidence of M spike in the peripheral blood. Patient's PSA level is 1.9 which is within the normal range. Clinically patient does not have any symptoms. I showed the patient the CT scan. The scan clearly showed lytic lesions in the pelvic bone especially on the left side. Talked with him that I would recommend a CT-guided biopsy to obtain the lesions. Patient voiced understanding. Plan: CT guided bone biopsy of left iliac bone lytic lesion. RTC in 7-10 days to review the results. (2) History of kidney cancer About in 1999, he had US of abdomen for something else, but it incidentally noted a left kidney mass. He then underwent radical left nephrectomy at [facility]. No adjuvant or chemotherapy afterwards. Plan: No clear evidence to suggest recurrence. Will continue surveillance. (3) History of malignant melanoma of skin Skin melanoma involving right posterior calf and right shoulder status post WLE, about in 2017. No clear evidence to suggest recurrence. Will continue current surveillance.
--- NOTE | 2019-08-24 10:46 | ONC.SCHED ---
contacted radiology and they need radiologist to approve the ct bone biopsy. I told them it was stat and they will call back today to get it scheduled.
--- NOTE | 2019-08-28 17:01 | ONC.SCHED ---
Per Filib[facility] Moreira, can't do CT bone biopsy that Dr. Miller ordered. I spoke with Dr. Miller and he said to hold off on it for now.
--- NOTE | 2019-08-31 11:59 | ONC.SCHED ---
spouse stopped in today to let us know he had a heart attack and is an inpatient as [facility]. Snehal relayed the info to Dr Miller and he'll try to visit him at [facility]/spouse will call when patient is able to get back on our schedule
== END ==
PROVIDERS: PCP Family Medicine; Visit Provider Internal Medicine Hematology & Oncology
DX: M89.8X8 Other specified disorders of bone, other site (principal); Z85.528 Personal history of other malignant neoplasm of kidney; Z90.5 Acquired absence of kidney; Z85.820 Personal history of malignant melanoma of skin
CPT/HCPCS: 36415; 80053; 83615; 83883; 84153; 84155; 84165; 85025; 99205; 99214; 99215

== ENCOUNTER 2019-08-30 15:01 | Emergency (ER) | payer MEDICARE, OTHER, SELFPAY ==
[2019-08-30 15:08] VITALS: BP 125/75; PULSE 58; RESP 13; TEMP 36.9; O2SAT 97
[2019-08-30 15:15] VITALS: BP 125/75; PULSE 61; RESP 15; O2SAT 97
[2019-08-30] MEDS: ASPIRIN 81 MG CHEW TAB 324 MG PO (15:19)
[2019-08-30] MEDS: HEPARIN 5,000 UNIT/ML VIAL 6600 UNIT IV (15:20)
[2019-08-30 15:21] VITALS: BP 125/70; PULSE 50
[2019-08-30] MEDS: NITROGLYCERIN 0.4 MG SL TAB 1.6 MG SL (15:21)
[2019-08-30] MEDS: HEPARIN DRIP 25,000 UNIT/500 ML IV.SOLN 19.813 UNIT IV (15:24)
--- NOTE | 2019-08-30 15:24 | ED_ITS ---
HPI - Chest Pain General Chief Complaint: Chest Pain Stated Complaint: chest pains x30 min Time Seen by Provider: 08/30/19 15:05 Source: patient Mode of arrival: Ambulatory Limitations: no limitations History of Present Illness HPI narrative: Patient comes emergency department complaining of substernal and left-sided chest pain that began about 30-40 minutes ago. He denies any shortness of breath but states that he felt suddenly quite tired and dizzy when this happened. Patient rates his pain as 7/10. He states nothing makes it better worse. He denies any diaphoresis or nausea. The patient has a history o f coronary artery disease and had stents placed about 20 years ago. He stays Dr. Cabral for cardiology care and states he had a stress test couple of months ago that looked good. Patient reports having an episode of similar chest pain a couple of days ago but states this resolved on its own. No other complaints at this time. Related Data Home Medications Medication Instructions Recorded Confirmed aspirin 81 mg PO DAILY #0 07/17/11 08/30/19 lisinopril [Prinivil] 20 mg PO DAILY 08/30/19 08/30/19 pravastatin 40 mg PO DAILY 08/30/19 08/30/19 Allergies Allergy/AdvReac Type Severity Reaction Status Date / Time No Known Drug Allergies Allergy Unknown Verified 08/28/19 11:09 [NO KNOWN DRUG ALLERGIES] Review of Systems Constitutional Constitutional: Denies chills, Denies fatigue, Denies fever(s), Denies frequent falls, Denies lethargy and Denies weakness Eyes Eyes: Denies change in vision, Denies eye discharge, Denies irritation and Denies loss of vision ENT Ears, Nose, Mouth, and Throat: Denies change in voice, Denies dizziness, Denies neck pain, Denies sore throat and Denies throat swelling Cardiovascular Cardiovascular: Reports chest pain, Denies irregular heart rhythm, Denies lightheadedness, Denies palpitations, Denies dyspnea, Denies dyspnea on exertion and Denies orthopnea Respiratory Respiratory: Denies cough, Denies dyspnea, Denies dyspnea on exertion and Denies wheezing Gastrointestinal Gastrointestinal: Denies abdominal pain, Denies change in bowel habits, Denies diarrhea, Denies nausea and Denies vomiting Genitourinary Genitourinary: Denies hematuria, Denies flank pain, Denies urinary incontinence and Denies urinary urgency Musculoskeletal Musculoskeletal: Denies back pain, Denies muscle weakness, Denies neck pain, Denies numbness and Denies tingling Integumentary/Breasts Skin/Breast: Denies pruritus, Denies erythema, Denies rash and Denies wounds Neurologic Neurologic: Denies behavioral changes, Denies confusion, Denies dizziness, Denies frequent falls, Denies loss of vision, Denies numbness, Denies tingling and Denies weakness Psychiatric Psychiatric: Denies anxiety, Denies behavioral changes, Denies confusion, Denies depression, Denies homicidal ideation and Denies suicidal ideation Endocrine Endocrine: Denies fatigue, Denies flushing and Denies palpitations Hematologic/Lymphatic Hematologic/Lymphatic: Denies easy bruising Allergic/Immunologic Allergic/Immunologic: Denies urticaria, Denies throat swelling and Denies wheezing Patient History Medical History Cancer of kidney (Chronic ~1999) Coronary artery disease (Chronic ~2000) Melanoma (Chronic ~2014) Vertigo (Chronic ~2015) Surgical History Anesthesia (Resolved) History of kidney surgery (Resolved ~1999) Surgical procedure planned (Resolved ~2000) Family History Brother Heart disease Father Heart disease Mother Stroke Colon cancer Social History household members: spouse Smoking Status: Former smoker alcohol intake: current substance use type: does not use alcohol intake frequency: 0-2 drinks per day Substance Use Type: does not use Exam Initial Vital Signs Initial Vital Signs: Vital Signs Temperature 98.4 F 08/30/19 15:08 Pulse Rate 58 L 08/30/19 15:08 Respiratory Rate 13 08/30/19 15:08 Blood Pressure 125/75 08/30/19 15:08 Pulse Oximetry 97 08/30/19 15:08 Const General: cooperative and well developed Nutritional Appearance: well nourished Orientation: alert, awake, oriented x3 and not confused HENGA Head: normocephalic and atraumatic Ears: external ears normal Nose: external nose normal and No nasal discharge Face and sinus: face symmetric and No dry mucous membranes Mouth: oral mucosae normal and moist mucous membranes Teeth and gingiva: dentition normal Eyes General: appearance normal, both eyes and all related structures Eyelids: eyelids normal Conjunctivae: conjunctivae normal Sclera: sclerae normal Pupils: PERRL EOM: EOM intact bilaterally Neck Neck: normal visual inspection, trachea midline, No lymphadenopathy, No midline deformity and No JVD Lymphatic: No lymphedema Chest Chest: normal inspection of the chest Resp Effort & Inspection: normal respiratory effort, able to speak in complete sentences, no respiratory distress and no use of accessory muscles Auscultation: clear to auscultation bilaterally, no rales, no rhonchi and no wheezes Cardio Rate: regular rate Rhythm: regular rhythm Heart Sounds: no click, no gallops, no murmurs and no rubs Pulses: normal peripheral pulses GI Inspection: non-distended Palpation: soft, no hepatosplenomegaly, No guarding, No pulsatile mass and No tender Back/Spine/Pelvis Back: No CVA tenderness Cervical Spine: cervical ROM normal and No pain with cervical ROM Thoracic/Lumbar Spine: thoracic and lumbar spine normal to inspection Skin General: no rashes or lesions noted, No jaundice and No petechiae Neuro General: alert, oriented x3, gait normal and no focal motor deficits Speech: speech normal Extrem General: full ROM, no clubbing, cyanosis or edema, no pedal edema and no calf tenderness Psych Appearance: well kempt Mental Status: mental status grossly normal Attitude: cooperative Thought Content: normal and suicidality Judgment: judgment good Course Course Course Narrative: EKG was performed and showed changes consistent with a STEMI, with ST elevations in both the lateral and inferior leads and reciprocal changes in the anterior leads. Patient was informed of the diagnosis and the need for emergent transfer and cardiac catheterization. The patient was hemodynamically stable in the emergency department, as far as blood pressure and heart rate. He was started on Plavix, aspirin, nitroglycerin, and heparin bolus and drip. I spoke emergently with Dr. Wagoner of the [facility] emergency department per STEMI transfer protocol and patient was accepted in transfer. Patient did agree to transfer. Orders Ordered: ED Orders 08/30/19 15:10 EKG-12 Lead Routine 08/30/19 15:15 Complete Blood Count AUTO DIFF Stat Comprehensive Metabolic Panel Stat Prothrombin Time INR Stat Troponin & CK Cardiac Panel Stat Discontinued Medications Aspirin (Aspirin Chew) 324 mg PO NOW ONE Stop: 08/30/19 15:18 Last Admin: 08/30/19 15:19 Dose: 324 mg Documented by: MISTI Clopidogrel Bisulfate (Plavix) 300 mg PO NOW ONE Stop: 08/30/19 15:18 Last Admin: 08/30/19 15:25 Dose: Not Given Documented by: MISTI Clopidogrel Bisulfate (Plavix) 600 mg PO NOW ONE Stop: 08/30/19 15:18 Last Admin: 08/30/19 15:25 Dose: 600 mg Documented by: MISTI Heparin Sodium (Porcine) (Heparin) 6,600 unit 80 unit/kg (6600 unit) IV NOW ONE Stop: 08/30/19 15:18 Last Admin: 08/30/19 15:20 Dose: 6,600 unit Documented by: MISTI Heparin Sodium/Dextrose (Heparin Drip) 25,000 unit in 500 mls @ 19.813 mls/hr IV CONT PEDRO; Protocol Last Titration: 08/30/19 15:28 Dose: 0 units/kg/hr, 0 mls/hr Documented by: Admin: 08/30/19 15:24 Dose: 12 units/kg/hr, 19.813 mls/hr Documented by: MISTI Vital Signs Vital signs: Vital Signs - 8 hr 08/30/19 15:08 08/30/19 15:15 08/30/19 15:21 Temperature 98.4 F Pulse Rate 58 L 61 50 L Respiratory Rate 13 15 Blood Pressure 125/75 125/70 Blood Pressure [Left Arm] 125/75 Pulse Oximetry 97 97 08/30/19 15:25 Temperature Pulse Rate 57 L Respiratory Rate 13 Blood Pressure Blood Pressure [Left Arm] 85/48 L Pulse Oximetry 96 MDM - Chest Pain Medical Records Data Attestation: I reviewed the patient's medical records. Lab Data Attestation: I reviewed the patient's lab results. Result diagrams: 08/30/19 15:15 08/30/19 15:15 Labs: Lab Results 08/30/19 08/30/19 08/30/19 Range/Units 15:15 15:15 15:15 WBC 8.2 (4.5-11.0) X10^3/uL RBC 4.61 (4.5-5.9) X10^6/uL Hgb 15.0 (13.5-17.5) g/dL Hct 43.0 (41-53) % MCV 93.3 (80-100) fL MCH 32.5 (26-34) PG MCHC 34.8 (30-36) % RDW 13.0 (11.6-14.8) % Plt Count 174 (150-400) X10^3/uL Neut % (Auto) 62.8 (50-75) % Lymph % (Auto) 21.3 L (25-40) % [place] % (Auto) 12.4 (3-14) % Eos % (Auto) 3.0 (2-4) % Baso % (Auto) 0.5 (0-2) % Neut # (Auto) 5200 (0008-2515) /uL Lymph # (Auto) 1800 (3595-3413) /uL [place] # (Auto) 1000 H (0-900) /uL Eos # (Auto) 300 (0-450) /uL Baso # (Auto) 0 (0-100) /uL PT 10.9 (10.1-12.7) SECONDS INR 0.9 (0.9-1.3) Sodium (137-145) mmol/L Potassium (3.4-5.1) mmol/L Chloride (98-107) mmol/L Carbon Dioxide (22-32) mmol/L BUN (9-20) mg/dL Creatinine (0.66-1.25) mg/dL Estimated GFR (>60) mL/min BUN/Creatinine Ratio (6-22) Glucose (80-110) mg/dL Calcium (8.4-10.2) mg/dL Total Bilirubin (0.2-1.3) mg/dL AST (17-59) IU/L ALT (21-72) IU/L Alkaline Phosphatase (38-126) U/L Total Creatine Kinase 102 (55-170) U/L CK-MB (CK-2) 3.23 H (<2.37) ng/mL CK-MB (CK-2) Rel Index 3.2 (1.5-5.0) % Troponin I 0.474 H* (0.01-0.034) ng/mL Total Protein (6.3-8.2) g/dL Albumin (3.5-5.0) g/dL Globulin (1.7-4.1) g/dL Albumin/Globulin Ratio (1.0-2.8) 08/30/ Range/Units 15:15 WBC (4.5-11.0) X10^3/uL RBC (4.5-5.9) X10^6/uL Hgb (13.5-17.5) g/dL Hct (41-53) % MCV (80-100) fL MCH (26-34) PG MCHC (30-36) % RDW (11.6-14.8) % Plt Count (150-400) X10^3/uL Neut % (Auto) (50-75) % Lymph % (Auto) (25-40) % [place] % (Auto) (3-14) % Eos % (Auto) (2-4) % Baso % (Auto) (0-2) % Neut # (Auto) (7233-8714) /uL Lymph # (Auto) (4919-1886) /uL [place] # (Auto) (0-900) /uL Eos # (Auto) (0-450) /uL Baso # (Auto) (0-100) /uL PT (10.1-12.7) SECONDS INR (0.9-1.3) Sodium 139 (137-145) mmol/L Potassium 4.2 (3.4-5.1) mmol/L Chloride 103 (98-107) mmol/L Carbon Dioxide 27 (22-32) mmol/L BUN 24 H (9-20) mg/dL Creatinine 1.40 H (0.66-1.25) mg/dL Estimated GFR 48.4 L (>60) mL/min BUN/Creatinine Ratio 17.1 (6-22) Glucose 128 H (80-110) mg/dL Calcium 9.7 (8.4-10.2) mg/dL Total Bilirubin 0.8 (0.2-1.3) mg/dL AST 34 (17-59) IU/L ALT 28 (21-72) IU/L Alkaline Phosphatase 80 (38-126) U/L Total Creatine Kinase (55-170) U/L CK-MB (CK-2) (<2.37) ng/mL CK-MB (CK-2) Rel Index (1.5-5.0) % Troponin I (0.01-0.034) ng/mL Total Protein 7.4 (6.3-8.2) g/dL Albumin 4.4 (3.5-5.0) g/dL Globulin 3.0 (1.7-4.1) g/dL Albumin/Globulin Ratio 1.5 (1.0-2.8) ECG Data Attestation: I personally reviewed and interpreted this ECG as follows: (See below) Interpretation: Twelve lead EKG performed August 30, 2019 at 3:10 p.m., as follows: Regular ventricular rhythm with a rate of 59 beats per minute MI interval 296 millisecond QRS duration 132 millisecond QTC interval [address] segment elevation noted in leads 2, 3, AVF, V5, and V6. ST depression noted in leads aVL, V2, and V3. Interpretation: Sinus bradycardia with first-degree AV block and occasional PVCs; intraventricular conduction delay; STEMI; abnormal EKG as interpreted by ED MD. Critical Care Time Critical Care Time Critical Care Time: Yes Total Critical Care Time: 30 Attestation: Critical care time was necessary, due to high probability of imminent decline and , secondary to acute ST elevation [place]. Critical care time is exclusive of separately billable procedures. Critical care time included: Interviewing and examining the patient, ordering and reviewing laboratory studies, ordering and reviewing tracing, evaluating cardiac output, evaluating oxygen saturation, discussion with consultants, discussion with patient/family, re-examining the patient, and documentation. Discharge Plan Departure Patient Disposition: [facility] Clinical Impression: ST elevation (STEMI) myocardial infarction Qualifiers: Involved coronary artery: unspecified coronary artery Qualified Code(s): I21.3 - ST elevation (STEMI) myocardial infarction of unspecified site Discharge Date/Time: 08/30/19 15:28 Prescriptions: No Action aspirin 81 mg Tablet,Delayed Release (Dr/Ec) 81 mg PO DAILY Qty: 0 RF: 0 pravastatin 40 mg tablet 40 mg PO DAILY RF: 0 lisinopril [Prinivil] 20 mg tablet 20 mg PO DAILY RF: 0 Referrals: Huber Baltazar MD [Primary Care Provider] -
[2019-08-30 15:25] VITALS: BP 85/48; PULSE 57; RESP 13; O2SAT 96
[2019-08-30] MEDS: CLOPIDOGREL 75 MG TABLET 600 MG PO (15:25)
[2019-08-30 15:26] LABS: Add Manual Diff / Slide Review NO; Basophils Absolute Auto 0 /uL (0-100); Basophils Percent Auto 0.5 % (0-2); Eosinophils Absolute Auto 300 /uL (0-450); Lymphocytes Absolute Auto 1800 /uL (1100-4500); Lymphocytes Percent Auto 21.3 % (25-40); Mean Corpuscular HGB Conc 34.8 % (30-36); Mean Corpuscular Hemoglobin 32.5 PG (26-34); Mean Corpuscular Volume 93.3 fL (80-100); Monocytes Absolute Auto 1000 /uL (0-900); Monocytes Percent Auto 12.4 % (3-14); Neutrophils Absolute Auto 5200 /uL (1500-7000); Neutrophils Percent Auto 62.8 % (50-75); Platelet Count 174 X10^3/uL (150-400); Red Blood Cell Count 4.61 X10^6/uL (4.5-5.9); White Blood Cell Count 8.2 X10^3/uL (4.5-11.0)
[2019-08-30 15:32] LABS: INR 0.9 (0.9-1.3); Prothrombin Time 10.9 SECONDS (10.1-12.7)
--- NOTE | 2019-08-30 15:36 | PC.NURSE ---
1510- ST Elevation noted on 5 lead monitor, 12 lead EKG in progress. At this time I called Dr. Quintanilla to bedside. EKG confirmed a STEMI. BRIANNE uinformed and calling for transfer to [facility].
[2019-08-30 15:39] LABS: Alanine Aminotransferase 28 IU/L (21-72); Albumin 4.4 g/dL (3.5-5.0); Albumin Globulin Ratio 1.5 (1.0-2.8); Alkaline Phosphatase 80 U/L (38-126); Aspartate Aminotransferase 34 IU/L (17-59); BUN Creatinine Ratio 17.1 (6-22); Bilirubin Total 0.8 mg/dL (0.2-1.3); Blood Urea Nitrogen 24 mg/dL (9-20); Calcium 9.7 mg/dL (8.4-10.2); Carbon Dioxide 27 mmol/L (22-32); Chloride 103 mmol/L (98-107); Estimated Glomerular Filt Rate 48.4 mL/min (>60); Glucose 128 mg/dL (80-110); HEMOLYSIS < 15 (0-50); Potassium 4.2 mmol/L (3.4-5.1); Sodium 139 mmol/L (137-145); Total Protein 7.4 g/dL (6.3-8.2)
[2019-08-30 15:40] LABS: Creatine Kinase 102 U/L (55-170)
--- NOTE | 2019-08-30 15:43 | PC.NURSE ---
1525 Patient's BP dropped after nitro to 85/48, no more nitro to be given at this time. Patient's head of bed lowered. Report given to [facility] for transfer and patient placed on their monitors. NS bolus being given by EMS at this time to assist in maintaining blood pressure. Ems is continuing Heparin drip at 19.8ml/hr as well.
[2019-08-30 15:55] LABS: CKMB % Relative Index 3.2 % (1.5-5.0); Creatine Kinase MB 3.23 ng/mL (<2.37)
[2019-08-30 16:17] LABS: Troponin I 0.474 ng/mL (0.01-0.034)
== END 2019-08-30 15:28 | disposition short-term general hospital (02) ==
PROVIDERS: Emergency Provider Emergency Medicine; PCP Family Medicine
DX: I21.3 ST elevation (STEMI) myocardial infarction of unspecified site (principal); Z95.5 Presence of coronary angioplasty implant and graft
CPT/HCPCS: 36415; 80053; 82550; 82553; 84484; 85025; 85610; 93005; 93010; 93041; 96374; 99283; 99291; J1644

== ENCOUNTER → 2019-09-07 08:07 | Outpatient (CLI) | payer MEDICARE, OTHER, SELFPAY ==
[2019-09-07 09:14] LABS: BUN Creatinine Ratio 22.5 (6-22); Blood Urea Nitrogen 27 mg/dL (9-20); Calcium 9.9 mg/dL (8.4-10.2); Carbon Dioxide 30 mmol/L (22-32); Chloride 102 mmol/L (98-107); Estimated Glomerular Filt Rate 57.8 mL/min (>60); Glucose 91 mg/dL (80-110); HEMOLYSIS < 15 (0-50); Potassium 4.5 mmol/L (3.4-5.1); Sodium 138 mmol/L (137-145)
== END ==
PROVIDERS: PCP Family Medicine; Visit Provider Internal Medicine Cardiovascular Disease
DX: I21.3 ST elevation (STEMI) myocardial infarction of unspecified site (principal); I10 Essential (primary) hypertension
CPT/HCPCS: 36415; 80048

== ENCOUNTER 2020-02-18 00:58 | Emergency (ER) | payer MEDICARE, OTHER, SELFPAY ==
[2020-02-18 01:05] VITALS: BP 203/100; PULSE 82; RESP 18; TEMP 36.5; O2SAT 97; BMI 24.4
--- NOTE | 2020-02-18 01:27 | ED_ITS ---
HPI - Weakness General Chief complaint: Weakness Stated complaint: shakes Time Seen by Provider: 02/18/20 01:01 Source: patient Mode of arrival: Ambulatory Limitations: no limitations History of Present Illness HPI Narrative: 84-year-old male with history of coronary artery disease, hypertension and hyperlipidemia presents with his in the chief complaint a sensation shaking as the day has worn on. He denies any fever or chills. He has had no headache, runny nose, sneezing or cough. He denies any chest pain or shortness of breath. He denies nausea, vomiting or diarrhea. He states that he feels fatigued and drove 13 hours today on his way home after being away for the past 6 months. He states this is much longer than he would typically drive and as a consequence of the [place] in pain de make the been eating all fast food and atypical diet for him. He denies any dysuria, frequency or urgency. MD Complaint: generalized weakness Onset (ago): hour(s) Duration: constant Location: generalized Migration: none Quality: other Relieving factors: none Exacerbating factors: none Context: other Associated symptoms: denies other symptoms Related Data Home Medications Medication Instructions Recorded Confirmed aspirin 81 mg PO DAILY #0 07/17/11 09/11/19 lisinopril [Prinivil] 20 mg PO DAILY 08/30/19 09/11/19 pravastatin 40 mg PO DAILY 08/30/19 09/11/19 clopidogrel 75 mg tablet 75 mg PO DAILY 09/11/19 09/11/19 nitroglycerin 0.4 mg sublingual 0.4 mg SL Q5M PRN 09/11/19 09/11/19 tablet Allergies Allergy/AdvReac Type Severity Reaction Status Date / Time No Known Drug Allergies Allergy Unknown Verified 09/11/19 09:33 [NO KNOWN DRUG ALLERGIES] Review of Systems Constitutional Constitutional: Denies chills, Denies fatigue, Denies fever(s), Denies frequent falls, Denies lethargy and Denies weakness Eyes Eyes: Denies change in vision, Denies eye discharge, Denies irritation and Den ies loss of vision ENT Ears, Nose, Mouth, and Throat: Denies change in voice, Denies dizziness, Denies neck pain, Denies sore throat and Denies throat swelling Cardiovascular Cardiovascular: Denies chest pain, Denies irregular heart rhythm, Denies lightheadedness, Denies palpitations, Denies dyspnea, Denies dyspnea on exertion and Denies orthopnea Respiratory Respiratory: Denies cough, Denies dyspnea, Denies dyspnea on exertion and Denies wheezing Gastrointestinal Gastrointestinal: Denies abdominal pain, Denies change in bowel habits, Denies diarrhea, Denies nausea and Denies vomiting Genitourinary Genitourinary: Denies hematuria, Denies flank pain, Denies urinary incontinence and Denies urinary urgency Musculoskeletal Musculoskeletal: Denies back pain, Denies muscle weakness, Denies neck pain, Denies numbness and Denies tingling Comments: shaking - largely improved Integumentary/Breasts Skin/Breast: Denies pruritus, Denies erythema, Denies rash and Denies wounds Neurologic Neurologic: Denies behavioral changes, Denies confusion, Denies dizziness, Denies frequent falls, Denies loss of vision, Denies numbness, Denies tingling and Denies weakness Psychiatric Psychiatric: Denies anxiety, Denies behavioral changes, Denies confusion, Denies depression, Denies homicidal ideation and Denies suicidal ideation Endocrine Endocrine: Denies fatigue, Denies flushing and Denies palpitations Hematologic/Lymphatic Hematologic/Lymphatic: Denies easy bruising Allergic/Immunologic Allergic/Immunologic: Denies urticaria, Denies throat swelling and Denies wheezing Patient History Medical History Cancer of kidney (Chronic ~1999) Coronary artery disease (Chronic ~2000) Melanoma (Chronic ~2014) Vertigo (Chronic ~2015) Surgical History Anesthesia (Resolved) History of kidney surgery (Resolved ~1999) Surgical procedure planned (Resolved ~2000) Family History Brother Heart disease Father Heart disease Mother Stroke Colon cancer Social History household members: spouse Smoking Status: Former smoker alcohol intake: current substance use type: does not use Smoking Status: Former smoker alcohol intake frequency: 0-2 drinks per day Substance Use Type: does not use Exam Narrative Exam Narrative: GENERAL: [84] year old patient appears younger than stated age. Well-nourished, well-developed patient, in mild distress. HEAD: Atraumatic. Normocephalic. EYES: Pupils equal round and reactive. Extraocular motions intact. No scleral icterus. No injection or drainage. ENT: Nose without bleeding, purulent drainage. Throat without erythema, tonsillar hypertrophy or exudate. Airway patent. NECK: Trachea midline. Non tender CARDIOVASCULAR: Regular rate and rhythm without murmurs, gallops, or rubs. RESPIRATORY: Clear to auscultation. Breath sounds equal bilaterally. No wheezes, rales, or rhonchi. GASTROINTESTINAL: Abdomen soft, non-tender, nondistended. EXTREMITIES: No edema or joint tenderness. BACK: Nontender without deformity or crepitance. No flank tenderness. NEURO: AOx3. SKIN: No rash or erythema of visible areas Initial Vital Signs Initial Vital Signs: Vital Signs Temperature 97.7 F 02/18/20 01:05 Pulse Rate 82 02/18/20 01:05 Respiratory Rate 18 02/18/20 01:05 Blood Pressure 203/100 H 02/18/20 01:05 Pulse Oximetry 97 02/18/20 01:05 Course Orders Ordered: ED Orders 02/18/20 01:10 Basic Metabolic Panel Stat Complete Blood Count AUTO DIFF Stat Free T4, Direct Thyroxine Stat Procalcitonin Stat Thyroid Stimulating Hormone Stat 02/18/20 02:11 Blood Culture Stat Vital Signs Vital signs: Vital Signs - 8 hr 02/18/20 01:05 Temperature 97.7 F Pulse Rate 82 Respiratory Rate 18 Blood Pressure 203/100 H Pulse Oximetry 97 MDM - Weakness Lab Data Result diagrams: 02/18/20 01:10 02/18/20 01:10 Labs: Lab Results 02/18/20 02/18/20 02/18/20 Range/Units 01:10 01:10 01:10 WBC 9.0 (4.5-11.0) X10^3/uL RBC 5.01 (4.5-5.9) X10^6/uL Hgb 15.9 (13.5-17.5) g/dL Hct 47.4 (41-53) % MCV 94.5 (80-100) fL MCH 31.7 (26-34) PG MCHC 33.5 (30-36) % RDW 13.4 (11.6-14.8) % Plt Count 160 (150-400) X10^3/uL Neut % (Auto) 63.4 (50-75) % Lymph % (Auto) 19.3 L (25-40) % [place] % (Auto) 12.9 (3-14) % Eos % (Auto) 3.9 (2-4) % Baso % (Auto) 0.5 (0-2) % Neut # (Auto) 5700 (4329-3149) /uL Lymph # (Auto) 1700 (1001-9639) /uL [place] # (Auto) 1200 H (0-900) /uL Eos # (Auto) 300 (0-450) /uL Baso # (Auto) 0 (0-100) /uL Sodium 139 (137-145) mmol/L Potassium 3.8 (3.4-5.1) mmol/L Chloride 104 (98-107) mmol/L Carbon Dioxide 26 (22-32) mmol/L BUN 27 H (9-20) mg/dL Creatinine 1.18 (0.66-1.25) mg/dL Estimated GFR 58.8 L (>60) mL/min BUN/Creatinine Ratio 22.9 H (6-22) Glucose 103 (80-110) mg/dL Calcium 10.2 (8.4-10.2) mg/dL Procalcitonin < 0.05 (<0.5) ng/mL TSH (0.47-4.68) uIU/mL Free T4 (0.78-2.19) ng/dL 02/18/20 Range/Units 01:10 WBC (4.5-11.0) X10^3/uL RBC (4.5-5.9) X10^6/uL Hgb (13.5-17.5) g/dL Hct (41-53) % MCV (80-100) fL MCH (26-34) PG MCHC (30-36) % RDW (11.6-14.8) % Plt Count (150-400) X10^3/uL Neut % (Auto) (50-75) % Lymph % (Auto) (25-40) % [place] % (Auto) (3-14) % Eos % (Auto) (2-4) % Baso % (Auto) (0-2) % Neut # (Auto) (3644-0409) /uL Lymph # (Auto) (1918-8516) /uL [place] # (Auto) (0-900) /uL Eos # (Auto) (0-450) /uL Baso # (Auto) (0-100) /uL Sodium (137-145) mmol/L Potassium (3.4-5.1) mmol/L Chloride (98-107) mmol/L Carbon Dioxide (22-32) mmol/L BUN (9-20) mg/dL Creatinine (0.66-1.25) mg/dL Estimated GFR (>60) mL/min BUN/Creatinine Ratio (6-22) Glucose (80-110) mg/dL Calcium (8.4-10.2) mg/dL Procalcitonin (<0.5) ng/mL TSH 2.44 (0.47-4.68) uIU/mL Free T4 1.20 (0.78-2.19) ng/dL Urine Dip Bedside Urine Glucose Negative Bedside Urine Bilirubin - Negative Bedside Urine Ketone - Negative Urine Specific [place] 1.015 Bedside Urine Occult Blood - Negative Bedside Urine pH 6.0 Bedside Urine Protein +/- 15 Bedside Urine Urobilinogen - Negative Bedside Urine Nitrite - Negative Bedside Urine Leukocytes +/- 15 Esterase ECG Data Attestation: I personally reviewed and interpreted this ECG as follows: Interpretation: Sinus rhythm, first-degree block (P are 217). Right bundle branch block. MDM Narrative Medical decision making narrative: Patient presents with what he describes as internal shaking which had largely resolved prior to his arrival. He states he has had severe infections before and this is much different than the rigors associated with his prior prostate infection. Is exam, story and labs are very reassuring. He recently traveled a significant distance with very little rest and has been living out of motels with his and eating nothing but fast food. Multiple etiologies considered such as underlying infection, electrolyte abnormality or other but it seems likely that fatigue and physiologic stress maybe at the root. Return precautions given and patient's questions answered to his apparent satisfaction. Discharge Plan Departure Patient Disposition: Home Clinical Impression: Fatigue Qualifiers: Fatigue type: unspecified Qualified Code(s): R53.83 - Other fatigue Activity Restrictions/Additional Instructions: *You have been diagnosed with [ fatigue ] *What to do: *Take medications as directed *Follow up with your primary care provider in 2-3 days, call for an appointment. Let them know you were seen in the Emergency Department and that we ask that you be seen in follow up *Return to ER if you should have any new, worsening or concerning symptoms Prescriptions: No Action aspirin 81 mg Tablet,Delayed Release (Dr/Ec) 81 mg PO DAILY Qty: 0 RF: 0 clopidogrel 75 mg tablet 75 mg PO DAILY RF: 0 nitroglycerin 0.4 mg tablet, sublingual 0.4 mg SL Q5M PRNRF: 0 pravastatin 40 mg tablet 40 mg PO DAILY RF: 0 lisinopril [Prinivil] 20 mg tablet 20 mg PO DAILY RF: 0 Referrals: Huber Baltazar MD [Primary Care Provider] -
[2020-02-18 01:43] LABS: Add Manual Diff / Slide Review NO; BUN Creatinine Ratio 22.9 (6-22); Basophils Absolute Auto 0 /uL (0-100); Basophils Percent Auto 0.5 % (0-2); Blood Urea Nitrogen 27 mg/dL (9-20); Calcium 10.2 mg/dL (8.4-10.2); Carbon Dioxide 26 mmol/L (22-32); Chloride 104 mmol/L (98-107); Eosinophils Absolute Auto 300 /uL (0-450); Eosinophils Percent Auto 3.9 % (2-4); Estimated Glomerular Filt Rate 58.8 mL/min (>60); Glucose 103 mg/dL (80-110); HEMOLYSIS 16 (0-50); Hematocrit 47.4 % (41-53); Hemoglobin 15.9 g/dL (13.5-17.5); Lymphocytes Absolute Auto 1700 /uL (1100-4500); Lymphocytes Percent Auto 19.3 % (25-40); Mean Corpuscular HGB Conc 33.5 % (30-36); Mean Corpuscular Hemoglobin 31.7 PG (26-34); Mean Corpuscular Volume 94.5 fL (80-100); Monocytes Absolute Auto 1200 /uL (0-900); Monocytes Percent Auto 12.9 % (3-14); Neutrophils Absolute Auto 5700 /uL (1500-7000); Neutrophils Percent Auto 63.4 % (50-75); Platelet Count 160 X10^3/uL (150-400); Potassium 3.8 mmol/L (3.4-5.1); Red Blood Cell Count 5.01 X10^6/uL (4.5-5.9); Red Cell Distribution Width 13.4 % (11.6-14.8); Sodium 139 mmol/L (137-145)
[2020-02-18 02:02] LABS: Procalcitonin < 0.05 ng/mL (<0.5)
[2020-02-18 02:19] LABS: Thyroid Stimulating Hormone 2.44 uIU/mL (0.47-4.68)
[2020-02-18 02:45] VITALS: BP 146/82; PULSE 88; RESP 14; O2SAT 99
== END 2020-02-18 02:47 | disposition home or self-care (01) ==
PROVIDERS: Emergency Provider Emergency Medicine; PCP Family Medicine
DX: R53.83 Other fatigue (principal); R53.1 Weakness; I25.10 Atherosclerotic heart disease of native coronary artery without angina pectoris; I10 Essential (primary) hypertension; E78.5 Hyperlipidemia, unspecified
CPT/HCPCS: 36415; 80048; 81003; 84145; 84439; 84443; 85025; 87040; 93005; 93010; 99284

== ENCOUNTER → 2020-02-23 08:26 | Outpatient (CLI) | payer MEDICARE, OTHER, SELFPAY ==
[2020-02-23 10:37] LABS: BUN Creatinine Ratio 19.6 (6-22); Blood Urea Nitrogen 22 mg/dL (9-20); Calcium 9.6 mg/dL (8.4-10.2); Carbon Dioxide 28 mmol/L (22-32); Chloride 103 mmol/L (98-107); Cholesterol 123 mg/dL (140-199); Estimated Glomerular Filt Rate > 60.0 mL/min (>60); Glucose 82 mg/dL (80-110); HDL Cholesterol 38 mg/dL (40-60); HEMOLYSIS < 15 (0-50); LDL Cholesterol Calculated 68 mg/dL (<100); Potassium 4.6 mmol/L (3.4-5.1); Sodium 139 mmol/L (137-145); Triglycerides 83 mg/dL (35-150)
== END ==
PROVIDERS: PCP Family Medicine; Referring Provider Family Medicine; Visit Provider Family Medicine
DX: E78.2 Mixed hyperlipidemia (principal); I10 Essential (primary) hypertension; N19 Unspecified kidney failure
CPT/HCPCS: 36415; 80048; 80061

== ENCOUNTER → 2020-02-28 14:05 | Outpatient (CLI) | payer MEDICARE, OTHER, SELFPAY ==
[2020-02-28 15:35] LABS: Alanine Aminotransferase 22 IU/L (<50); Albumin 4.1 g/dL (3.5-5.0); Albumin Globulin Ratio 1.4 (1.0-2.8); Alkaline Phosphatase 97 U/L (38-126); Amylase 74 U/L (30-110); Aspartate Aminotransferase 27 IU/L (17-59); Bilirubin Total 0.5 mg/dL (0.2-1.3); Bilirubin Unconjugated 0.4 mg/dL (0.0-1.1); HEMOLYSIS < 15 (0-50); Lipase 84 U/L (23-300); Total Protein 7.1 g/dL (6.3-8.2)
[2020-03-03 01:06] LABS: H pylori Breath Test Negative (Negative)
== END ==
PROVIDERS: PCP Family Medicine; Referring Provider Family Medicine; Visit Provider Family Medicine
DX: R12 Heartburn (principal)
CPT/HCPCS: 36415; 80076; 82150; 83013; 83690

== ENCOUNTER → 2020-09-25 10:12 | Outpatient (CLI) | payer MEDICARE, OTHER, SELFPAY ==
[2020-09-25 11:47] LABS: Prostate Specific Antigen Scrn 2.42 ng/mL (0.1-4.0)
== END ==
PROVIDERS: PCP Family Medicine; Referring Provider Family Medicine; Visit Provider Family Medicine
DX: N40.0 Benign prostatic hyperplasia without lower urinary tract symptoms (principal); Z85.528 Personal history of other malignant neoplasm of kidney; Z12.5 Encounter for screening for malignant neoplasm of prostate
CPT/HCPCS: 36415; G0103

== ENCOUNTER → 2020-11-14 16:38 | Outpatient (CLI) | payer MEDICARE, OTHER, SELFPAY ==
[2020-11-14 17:27] LABS: Alanine Aminotransferase 25 IU/L (<50); Albumin 3.9 g/dL (3.5-5.0); Albumin Globulin Ratio 1.4 (1.0-2.8); Alkaline Phosphatase 101 U/L (38-126); Aspartate Aminotransferase 29 IU/L (17-59); BUN Creatinine Ratio 22.6 (6-22); Bilirubin Total 0.5 mg/dL (0.2-1.3); Blood Urea Nitrogen 26 mg/dL (9-20); Calcium 9.3 mg/dL (8.4-10.2); Carbon Dioxide 32 mmol/L (22-32); Chloride 103 mmol/L (98-107); Cholesterol 114 mg/dL (140-199); Estimated Glomerular Filt Rate > 60.0 mL/min (>60); Globulin 2.7 g/dL (1.7-4.1); Glucose 108 mg/dL (80-110); HDL Cholesterol 36 mg/dL (40-60); HEMOLYSIS < 15 (0-50); LDL Cholesterol Calculated 54 mg/dL (<100); Potassium 4.3 mmol/L (3.4-5.1); Sodium 138 mmol/L (137-145); Total Protein 6.6 g/dL (6.3-8.2); Triglycerides 120 mg/dL (35-150)
== END ==
PROVIDERS: PCP Internal Medicine; Referring Provider Internal Medicine Cardiovascular Disease; Visit Provider Internal Medicine Cardiovascular Disease
DX: E78.00 Pure hypercholesterolemia, unspecified (principal)
CPT/HCPCS: 36415; 80053; 80061

== ENCOUNTER → 2021-05-08 08:04 | Outpatient (CLI) | payer MEDICARE, OTHER, SELFPAY ==
[2021-05-08 09:17] LABS: Alanine Aminotransferase 23 IU/L (<50); Albumin 3.9 g/dL (3.5-5.0); Albumin Globulin Ratio 1.3 (1.0-2.8); Alkaline Phosphatase 88 U/L (38-126); Aspartate Aminotransferase 28 IU/L (17-59); BUN Creatinine Ratio 17.5 (6-22); Bilirubin Total 0.7 mg/dL (0.2-1.3); Blood Urea Nitrogen 18 mg/dL (9-20); Calcium 9.4 mg/dL (8.4-10.2); Carbon Dioxide 28 mmol/L (22-32); Chloride 105 mmol/L (98-107); Cholesterol 113 mg/dL (140-199); Estimated Glomerular Filt Rate > 60.0 mL/min (>60); Glucose 92 mg/dL (80-110); HDL Cholesterol 36 mg/dL (40-60); HEMOLYSIS < 15 (0-50); LDL Cholesterol Calculated 63 mg/dL (<100); Potassium 4.1 mmol/L (3.4-5.1); Sodium 139 mmol/L (137-145); Total Protein 6.9 g/dL (6.3-8.2); Triglycerides 68 mg/dL (35-150)
== END ==
PROVIDERS: PCP Internal Medicine; Referring Provider Internal Medicine; Visit Provider Internal Medicine
DX: E78.2 Mixed hyperlipidemia (principal); I10 Essential (primary) hypertension; K21.9 Gastro-esophageal reflux disease without esophagitis
CPT/HCPCS: 36415; 80053; 80061

== ENCOUNTER 2021-06-10 17:02 | Emergency (ER) | payer MEDICARE, OTHER, SELFPAY ==
[2021-06-10] VITALS (14 sets, daily range): BP systolic 167–197; BP diastolic 81–103; PULSE 59–76; RESP 13–27; TEMP 36.9; O2SAT 97–100; BMI 24.4
--- NOTE | 2021-06-10 17:12 | DI.RAD.S_ITS ---
PROCEDURE: XR CHEST 1V INDICATIONS: chest pain TECHNIQUE: One view of the chest was acquired. COMPARISON: [facility], CR, XR CHEST 2V, 03/13/2019, 11:38. FINDINGS: Surgical changes and devices: None. Lungs and pleura: Lungs are clear. No pleural effusions or pneumothorax. Mediastinum: Mediastinal contours appear normal. Heart size is normal. Mild aortic atherosclerotic calcifications. Bones and chest wall: No suspicious bony lesions. Overlying soft tissues appear unremarkable. Degenerative changes are seen in the spine and acromioclavicular joints. IMPRESSION: No acute cardiopulmonary abnormality. Dictated by: Roderick Stuart M.D. on 06/10/2021 at 18:01 Approved by: Roderick Stuart M.D. on 06/10/2021 at 18:01
[2021-06-10 17:42] LABS: Add Manual Diff / Slide Review NO; Basophils Absolute Auto 0 /uL (0-100); Basophils Percent Auto 0.6 % (0-2); Eosinophils Absolute Auto 400 /uL (0-450); Hematocrit 42.7 % (41-53); Hemoglobin 14.3 g/dL (13.5-17.5); Lymphocytes Absolute Auto 1500 /uL (1100-4500); Lymphocytes Percent Auto 19.3 % (25-40); Mean Corpuscular HGB Conc 33.5 % (30-36); Mean Corpuscular Hemoglobin 31.6 PG (26-34); Mean Corpuscular Volume 94.2 fL (80-100); Monocytes Absolute Auto 800 /uL (0-900); Neutrophils Absolute Auto 4900 /uL (1500-7000); Neutrophils Percent Auto 64.1 % (50-75); Platelet Count 151 X10^3/uL (150-400); Red Blood Cell Count 4.53 X10^6/uL (4.5-5.9); Red Cell Distribution Width 13.5 % (11.6-14.8); White Blood Cell Count 7.6 X10^3/uL (4.5-11.0)
[2021-06-10 17:49] LABS: Prothrombin Time 11.1 SECONDS (10.1-12.7)
[2021-06-10 17:52] LABS: PTT Partial Thromboplastin Tim 31 SECONDS (26.4-36.2)
[2021-06-10 18:03] LABS: Alanine Aminotransferase 27 IU/L (<50); Albumin 3.9 g/dL (3.5-5.0); Albumin Globulin Ratio 1.3 (1.0-2.8); Alkaline Phosphatase 85 U/L (38-126); Aspartate Aminotransferase 30 IU/L (17-59); BUN Creatinine Ratio 19.3 (6-22); Bilirubin Total 0.7 mg/dL (0.2-1.3); Blood Urea Nitrogen 22 mg/dL (9-20); Calcium 9.2 mg/dL (8.4-10.2); Carbon Dioxide 27 mmol/L (22-32); Chloride 103 mmol/L (98-107); Creatine Kinase 105 U/L (55-170); Estimated Glomerular Filt Rate > 60.0 mL/min (>60); Globulin 2.9 g/dL (1.7-4.1); Glucose 119 mg/dL (80-110); HEMOLYSIS < 15 (0-50); Lipase 69 U/L (23-300); Sodium 137 mmol/L (137-145); Total Protein 6.8 g/dL (6.3-8.2)
[2021-06-10 18:15] LABS: Troponin I < 0.012 ng/mL (0.01-0.034)
[2021-06-10 18:19] LABS: CKMB % Relative Index 3.3 % (1.5-5.0)
--- NOTE | 2021-06-10 18:24 | ED_ITS ---
HPI - Dizziness General Chief Complaint: Dizziness Stated Complaint: dizziness, lightheadedness Time Seen by Provider: 06/10/21 18:24 Source: patient and family Mode of arrival: Ambulatory Limitations: no limitations History of Present Illness HPI Narrative: 85M former smoker with history of CAD, HTN, hyperlipidemia, and chronic dizziness and lightheadedness presents today with a chief complaint of an increase in his lightheadedness. He describes lightheadedness as being rather chronic, there most the time and usually worsened by change in position. Frequently it is been attributed to sinus pressure and fullness. He states he has had some nasal congestion and frontal head pressure but no significant head aches. He has had no fever or chills and denies any significant drainage. He did recently get new hearing aids but denies any pain or fullness in his ears. He denies chest pain or shortness of breath. He states he is frequently active and hikes most days and denies any exertional component nor increased exercise fatigue or intolerance. He denies nausea, vomiting or diarrhea. He denies any dysuria, frequency or urgency. He has no new medications and denies any dietary change Related Data Home Medications Medication Instructions Recorded Confirmed aspirin 81 mg tablet,delayed 81 mg PO DAILY #0 07/17/11 05/13/21 release nitroglycerin 0.4 mg sublingual 0.4 mg SL Q5M PRN 09/11/19 05/13/21 tablet clopidogrel 75 mg tablet 37.5 mg PO DAILY tab 05/13/21 05/13/21 Previous Rx's Medication Instructions Recorded atorvastatin 80 mg tablet 40 mg PO DAILY #90 tab 02/28/20 lisinopril 20 mg tablet (Prinivil) 20 mg PO DAILY #90 tab 02/28/20 Allergies Allergy/AdvReac Type Severity Reaction Status Date / Time No Known Drug Allergies Allergy Unknown Verified 06/10/21 17:12 [NO KNOWN DRUG ALLERGIES] Review of Systems Review of Systems Narrative: GENERAL: Denies chills, fatigue, malaise, fever, sweats. HEENT: Denies sinus pain, ear pain, sore throat, difficulty swallowing, dizziness. RESPIRATORY: Denies dyspnea, cough, wheezing, hemoptysis, sputum. CARDIOVASCULAR: Denies chest pain, palpitations, orthopnea, edema, GASTROINTESTINAL: Denies nausea, vomiting, abdominal pain, diarrhea, constipation, melena. : Denies dysuria, frequency, incontinence, hematuria, urinary retention. MUSCULOSKELETAL: denies weakness, joint pain, or bony pain SKIN: Denies rash, skin lesions, or other NEUROLOGIC: See HPI PSYCHIATRIC: No concerning psychosocial issues. 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 Melanoma (~2014) Mixed hyperlipidemia RBBB (right bundle branch block with left anterior fascicular block) Vertigo (~2015) Surgical History Anesthesia History of kidney surgery (~1999) S/P coronary artery stent placement (~1999) Family History Brother Heart disease Father Heart disease Mother Stroke Colon cancer Social History household members: spouse Smoking Status: Former smoker alcohol intake: current substance use type: does not use Smoking Status: Former smoker alcohol intake frequency: 0-2 drinks per day Alcohol type: wine Substance Use Type: does not use Exam Narrative Exam Narrative: GENERAL: 85 year old patient appears stated age. Well-developed patient, in mild distress. HEAD: Atraumatic. Normocephalic. EYES: Pupils equal round and reactive. Extraocular motions intact. No scleral icterus. No injection or drainage. No nystagmus, no reproducible dizziness with head position ENT: Nose without bleeding, purulent drainage. Throat without erythema, tons illar hypertrophy or exudate. Airway patent. NECK: Trachea midline. Non tender CARDIOVASCULAR: Regular rate and rhythm without murmurs, gallops, or rubs. RESPIRATORY: Clear to auscultation. Breath sounds equal bilaterally. No wheezes, rales, or rhonchi. GASTROINTESTINAL: Abdomen soft, non-tender, nondistended. EXTREMITIES: No edema or joint tenderness. BACK: Nontender without deformity or crepitance. No flank tenderness. NEURO: AOx3. SKIN: No rash or erythema of visible areas Initial Vital Signs Initial Vital Signs: Vital Signs Temperature 98.5 F 06/10/21 17:05 Pulse Rate 76 06/10/21 17:05 Respiratory Rate 18 06/10/21 17:05 Blood Pressure 177/84 H 06/10/21 17:05 Pulse Oximetry 98 06/10/21 17:05 Course Course Course Narrative: Patient asymptomatic with orthostatic vital signs. He developed complete resolution of symptoms after gentle hydration and a reduction in blood pressure to the 160s. It would seem likely that these to elements have contributed to his non vertigo type dizziness. He has been given extensive return precautions and questions answered to his apparent satisfaction Orders Ordered: Discontinued Medications Sodium Chloride (Normal Saline 0.9%) 500 mls @ 1,000 mls/hr IV BOLUS ONE Stop: 06/10/21 19:00 Last Infusion: 06/10/21 19:30 Dose: 0 mls/hr Documented by: Admin: 06/10/21 18:43 Dose: 1,000 mls/hr Documented by: KALA Vital Signs Vital signs: Vital Signs - 8 hr 06/10/21 19:00 06/10/21 19:15 06/10/21 19:26 Pulse Rate 59 L 61 66 Pulse Rate [Orthostatic Lying] Pulse Rate [Orthostatic Sitting] Pulse Rate [Orthostatic Standing] Respiratory Rate 15 17 17 Blood Pressure 183/84 H 171/87 H Blood Pressure [Orthostatic Lying] Blood Pressure [Orthostatic Sitting] Blood Pressure [Orthostatic Standing] Pulse Oximetry 98 97 98 06/10/21 19:28 06/10/21 19:30 06/10/21 19:33 Pulse Rate 67 67 72 Pulse Rate [Orthostatic Lying] Pulse Rate [Orthostatic Sitting] Pulse Rate [Orthostatic Standing] Respiratory Rate 19 21 24 Blood Pressure 185/101 H 189/100 H Blood Pressure [Orthostatic Lying] Blood Pressure [Orthostatic Sitting] Blood Pressure [Orthostatic Standing] Pulse Oximetry 100 99 99 06/10/21 19:35 06/10/21 19:48 06/10/21 20:00 Pulse Rate 73 67 Pulse Rate [Orthostatic Lying] 67 Pulse Rate [Orthostatic Sitting] 68 Pulse Rate [Orthostatic Standing] 73 Respiratory Rate 22 13 Blood Pressure 197/103 H 174/83 H Blood Pressure [Orthostatic Lying] 171/87 H Blood Pressure [Orthostatic Sitting] 185/101 H Blood Pressure [Orthostatic Standing] 197/103 H Pulse Oximetry 98 99 06/10/21 20:30 Pulse Rate 64 Pulse Rate [Orthostatic Lying] Pulse Rate [Orthostatic Sitting] Pulse Rate [Orthostatic Standing] Respiratory Rate 15 Blood Pressure 167/81 H Blood Pressure [Orthostatic Lying] Blood Pressure [Orthostatic Sitting] Blood Pressure [Orthostatic Standing] Pulse Oximetry 99 MDM - Dizziness Lab Data Result diagrams: 06/10/21 17:34 06/10/21 17:34 Labs: Lab Results 06/10/21 06/10/21 06/10/21 Range/Units 17:34 17:34 17:34 WBC 7.6 (4.5-11.0) X10^3/uL RBC 4.53 (4.5-5.9) X10^6/uL Hgb 14.3 (13.5-17.5) g/dL Hct 42.7 (41-53) % MCV 94.2 (80-100) fL MCH 31.6 (26-34) PG MCHC 33.5 (30-36) % RDW 13.5 (11.6-14.8) % Plt Count 151 (150-400) X10^3/uL Neut % (Auto) 64.1 (50-75) % Lymph % (Auto) 19.3 L (25-40) % [place] % (Auto) 11.0 (3-14) % Eos % (Auto) 5.0 H (2-4) % Baso % (Auto) 0.6 (0-2) % Neut # (Auto) 4900 (1996-7257) /uL Lymph # (Auto) 1500 (1938-8424) /uL [place] # (Auto) 800 (0-900) /uL Eos # (Auto) 400 (0-450) /uL Baso # (Auto) 0 (0-100) /uL PT 11.1 (10.1-12.7) SECONDS INR 1.0 (0.9-1.3) APTT 31 (26.4-36.2) SECONDS Sodium 137 (137-145) mmol/L Potassium 4.0 (3.4-5.1) mmol/L Chloride 103 (98-107) mmol/L Carbon Dioxide 27 (22-32) mmol/L BUN 22 H (9-20) mg/dL Creatinine 1.14 (0.66-1.25) mg/dL Estimated GFR > 60.0 (>60) mL/min BUN/Creatinine Ratio 19.3 (6-22) Glucose 119 H (80-110) mg/dL Calcium 9.2 (8.4-10.2) mg/dL Total Bilirubin 0.7 (0.2-1.3) mg/dL AST 30 (17-59) IU/L ALT 27 (<50) IU/L Alkaline Phosphatase 85 (38-126) U/L Total Creatine Kinase 105 (55-170) U/L CK-MB (CK-2) 3.50 H (<2.37) ng/mL CK-MB (CK-2) Rel Index 3.3 (1.5-5.0) % Troponin I < 0.012 (0.01-0.034) ng/mL Total Protein 6.8 (6.3-8.2) g/dL Albumin 3.9 (3.5-5.0) g/dL Globulin 2.9 (1.7-4.1) g/dL Albumin/Globulin Ratio 1.3 (1.0-2.8) Lipase 69 (23-300) U/L Urine Dip Bedside Urine Glucose Negative Bedside Urine Bilirubin - Negative Bedside Urine Ketone - Negative Urine Specific [place] 1.020 Bedside Urine Occult Blood - Negative Bedside Urine pH 6.0 Bedside Urine Protein - Negative Bedside Urine Urobilinogen - Negative Bedside Urine Nitrite - Negative Bedside Urine Leukocytes - Negative Esterase Discharge Plan Departure Patient Disposition: Home Clinical Impression: Essential hypertension, Dizziness Instructions: DI for Dizziness-Nonvertigo Activity Restrictions/Additional Instructions: *You have been diagnosed with [dizziness, likely due to elevated blood pressure and possibly some mild dehydration] *What to do: *Please continue to take your regular medications as directed. [ ] New medication prescriptions sent to your pharmacy: [ ] [ ] New medication written as a paper prescription [x ] No new medications given *Please follow up with your primary care provider in 2-3 days, call for an appointment. Let them know you were seen in the Emergency Department and that we ask that you be seen in follow up. We will electronically transmit a record of today's note if your PCP is in our system *If you do not have a primary care provider please contact the [facility] Resource line at [phone]. They will ask some questions about your medical history and help get you set up with a doctor in the community. *Return to Emergency Department if you should have any new, worsening or concerning symptoms, such as [fever greater than 101 F, shaking chills, worsening pain, persistent vomiting or other bothersome symptoms] Prescriptions: No Action aspirin 81 mg Tablet,Delayed Release (Dr/Ec) 81 mg PO DAILY Qty: 0 RF: 0 nitroglycerin 0.4 mg tablet, sublingual 0.4 mg SL Q5M PRNRF: 0 atorvastatin 80 mg tablet 40 mg PO DAILY Qty: 90 RF: 3 lisinopril [Prinivil] 20 mg tablet 20 mg PO DAILY Qty: 90 RF: 3 clopidogrel 75 mg tablet 37.5 mg PO DAILY RF: 0 Referrals: Vahe Melendez MD [Primary Care Provider] -
--- NOTE | 2021-06-10 18:39 | PC.NURSE ---
Patient states he has struggled with some dizziness for some time. Reports position changes sitting to standing will bring on dizziness. Today patient went out to mow the grass I felt like I was going to pass out denies diaphoretic, SOB. Has had some chronic sinus congestion over the time. No change in dizziness with sudden movement of head right to left. Denies any chest pain or SOB at present.
--- NOTE | 2021-06-10 18:42 | PC.NURSE ---
Patient does express significant change in energy level overall
[2021-06-10] MEDS: SODIUM CHLORIDE 0.9% 500 ML 1000 ML IV (18:43)
== END 2021-06-10 20:51 | disposition home or self-care (01) ==
PROVIDERS: Emergency Medicine; Emergency Provider Emergency Medicine; PCP Internal Medicine
DX: I10 Essential (primary) hypertension (principal); R42 Dizziness and giddiness
CPT/HCPCS: 36415; 71045; 80053; 81003; 82550; 82553; 83690; 84484; 85025; 85610; 85730; 93005; 96360; 99284

== ENCOUNTER → 2021-10-23 08:36 | Outpatient (CLI) | payer MEDICARE, OTHER, SELFPAY ==
[2021-10-23 09:49] LABS: Alanine Aminotransferase 33 IU/L (<50); Albumin 4.1 g/dL (3.5-5.0); Albumin Globulin Ratio 1.4 (1.0-2.8); Alkaline Phosphatase 79 U/L (38-126); Aspartate Aminotransferase 33 IU/L (17-59); BUN Creatinine Ratio 18.6 (6-22); Bilirubin Total 0.9 mg/dL (0.2-1.3); Blood Urea Nitrogen 22 mg/dL (9-20); Calcium 9.5 mg/dL (8.4-10.2); Carbon Dioxide 31 mmol/L (22-32); Chloride 105 mmol/L (98-107); Estimated Glomerular Filt Rate 58.7 mL/min (>60); Globulin 2.9 g/dL (1.7-4.1); Glucose 98 mg/dL (80-110); HEMOLYSIS < 15 (0-50); Potassium 4.1 mmol/L (3.4-5.1); Sodium 140 mmol/L (137-145)
[2021-10-23 09:51] LABS: Cholesterol 124 mg/dL (140-199); HDL Cholesterol 41 mg/dL (40-60); LDL Cholesterol Calculated 69 mg/dL (<100); Triglycerides 69 mg/dL (35-150)
== END ==
PROVIDERS: PCP Internal Medicine; Referring Provider Internal Medicine Cardiovascular Disease; Visit Provider Internal Medicine Cardiovascular Disease
DX: E78.00 Pure hypercholesterolemia, unspecified (principal); I10 Essential (primary) hypertension; E78.2 Mixed hyperlipidemia; I25.10 Atherosclerotic heart disease of native coronary artery without angina pectoris
CPT/HCPCS: 36415; 80053; 80061

== ENCOUNTER → 2021-12-29 07:32 | Outpatient (CLI) | payer MEDICARE, OTHER, SELFPAY ==
[2021-12-29 09:01] LABS: Alanine Aminotransferase 31 IU/L (<50); Albumin 3.8 g/dL (3.5-5.0); Albumin Globulin Ratio 1.4 (1.0-2.8); Alkaline Phosphatase 77 U/L (38-126); Aspartate Aminotransferase 30 IU/L (17-59); BUN Creatinine Ratio 16.8 (6-22); Bilirubin Total 0.8 mg/dL (0.2-1.3); Blood Urea Nitrogen 18 mg/dL (9-20); Calcium 9.1 mg/dL (8.4-10.2); Carbon Dioxide 33 mmol/L (22-32); Chloride 105 mmol/L (98-107); Cholesterol 115 mg/dL (140-199); Estimated Glomerular Filt Rate > 60.0 mL/min (>60); Globulin 2.8 g/dL (1.7-4.1); Glucose 96 mg/dL (80-110); HDL Cholesterol 38 mg/dL (40-60); HEMOLYSIS < 15 (0-50); LDL Cholesterol Calculated 64 mg/dL (<100); Potassium 4.1 mmol/L (3.4-5.1); Sodium 139 mmol/L (137-145); Total Protein 6.6 g/dL (6.3-8.2); Triglycerides 67 mg/dL (35-150)
== END ==
PROVIDERS: PCP Internal Medicine; Referring Provider Internal Medicine; Visit Provider Internal Medicine
DX: E78.2 Mixed hyperlipidemia (principal); I25.10 Atherosclerotic heart disease of native coronary artery without angina pectoris
CPT/HCPCS: 36415; 80053; 80061

== ENCOUNTER → 2022-06-22 09:08 | Outpatient (CLI) | payer MEDICARE, OTHER, SELFPAY ==
--- NOTE | 2022-06-22 | DI.ECHO.S_ITS ---
[facility] +---------+ : : [address] : : : : [phone] : : : : Phone: [phone]+ Echocardiogram Report + + :Name: ROXY SHEA Study Date: 06/22/2022 Height: 72 in : :[facility] ReadingLocation: Weight: 180 lb : : Gender: Male BSA: 2.0 m2 : :: 1935 Age: 86 yrs BP: 164/95 mmHg: :Reason For Study: MURMUR, AORTIC STENOSIS : :Ordering Physician: JAQUI, : :[place] Performed By: Demi Guaman : :Referring: ENRICO NAILS : + + Interpretation Summary The left ventricle is mildly dilated. The ejection fraction is estimated to be 60-65%. There has been no significant change in LVEF since the previous exam. The right ventricle is mildly dilated. The right ventricular systolic function is normal. The aortic valve is trileaflet. There is mildly reduced leaflet mobility. The peak aortic velocity is 2.2 m/sec. The aortic valve mean gradient is 10 mmHg. The peak aortic velocity on the previous exam was 2.17 m/sec. There is mild aortic stenosis. No significant change from the previous study. There is mild tricuspid regurgitation. Compared to the prior echo exam, there has been no change in TR severity. The right ventricular systolic pressure is estimated to be at least 31 mmHg based on an estimated right atrial pressure of 3 mm Hg. The ascending aorta is mildly enlarged. 3.7 cm in diameter. Previously 3.6 cm in diameter. Procedure: A two-dimensional transthoracic echocardiogram with color flow and Doppler was performed. The study quality was technically adequate. Comparison is made with the echocardiogram of 04/12/2019. The patient was in 62-65 during the exam. The patient was in normal sinus rhythm during the exam. Left Ventricle: Proximal septal thickening is noted. There is no echo evidence for significant left ventricular outflow tract obstruction. The left ventricle is mildly dilated. There is no thrombus. The ejection fraction is estimated to be 60-65%. There has been no significant change since the previous exam. There are no focal wall motion abnormalities. MV E/A: 0.66 Med Peak E' Ganesh: 4.4 cm/sec E/E' med: 16.7. Right Ventricle: The right ventricle is mildly dilated. The right ventricular systolic function is normal. Atria: The left atrium is mildly dilated. The left atrium has mildly increased in size since the prior echo exam. Right atrial size is normal. There is no Doppler evidence for an interatrial shunt. Mitral Valve: There is mild mitral annular calcification. The mitral valve leaflets are slightly calcified. There is mild mitral regurgitation. Aortic Valve: The aortic valve is trileaflet. The aortic valve is mildly calcified. There is mild aortic valve sclerosis. There is mildly reduced leaflet mobility. The peak aortic velocity is 2.2 m/sec. The aortic valve mean gradient is 10 mmHg. The peak aortic velocity on the previous exam was 2.17 m/sec. There is mild aortic stenosis. No aortic regurgitation is present. Tricuspid Valve: The tricuspid valve is normal. There is mild tricuspid regurgitation. The right ventricular systolic pressure is estimated to be at least 31 mmHg based on an estimated right atrial pressure of 3 mm Hg. Compared to the prior echo exam, there has been no change in TR severity. Pulmonic Valve: The pulmonic valve leaflets are thin and pliable; valve motion is normal. There is trace pulmonic regurgitation. Great Vessels: There is aortic root sclerosis/calcification. The aortic root is normal size. The ascending aorta is mildly enlarged. The IVC is of normal diameter and collapses greater than 50% with a sniff. This suggests a low right atrial pressure of 3 mm Hg. Pericardium/ Pleura There is no pericardial effusion. There is no pleural effusion. MMode/2D Measurements & Calculations LVIDd: 5.9 cm LVOT diam: 2.0 cm LVIDs: 4.4 cm Ao root diam: 4.0 cm FS: 25.6 % asc Aorta Diam: 3.7 cm IVSd: 1.0 cm Ao Arch Diam (Prox Trans): 2.8 cm LVPWd: 0.99 cm LV mchugh. diameter/BSA (cm/m^2): 2.9 LV sys. diameter/BSA (cm/m^2): 2.2 LA A2 area: 21.5 cm2 RA long axis: 5.6 cm LA A4 area: 20.5 cm2 RA area: 20.3 cm2 LA length (vol): 5.2 cm RA vol: 62.8 ml LA vol: 71.5 ml RA : 30.8 ml/m2 LA vol index: 35.1 ml/m2 IVC diam: 1.3 cm RVD1 (basal): 4.5 cm RVD2 (mid): 4.0 cm TAPSE: 2.3 cm Doppler Measurements & Calculations Ao V2 max: 221.9 cm/sec LVOT Max Ganesh: 88.5 cm/sec Ao V2 mean: 147.5 cm/sec LV V1 max P.1 mmHg Ao max P.5 mmHg LV V1 VTI: 21.8 cm Ao mean P.5 mmHg CITLALY(I,D): 1.4 cm2 Ao V2 VTI: 48.4 cm CITLALY(V,D): 1.2 cm2 sev ratio: 0.45 CITLALY indexed to BSA (cm^2/m^2): 0.68 MV E max ganesh: 72.8 cm/sec TR max ganesh: 264.7 cm/sec MV A max ganesh: 110.8 cm/sec TR max P.0 mmHg MV E/A: 0.66 PA V2 max: 132.2 cm/sec Med Peak E' Ganesh: 4.4 cm/sec PA V2 mean: 82.1 cm/sec E/E' med: 16.7 PA mean P.3 mmHg Lat Peak E' Ganesh: 5.3 cm/sec PA pr(Accel): 46.5 mmHg E/E' lat: 13.8 E/e' average: 15.2 MV dec time: 0.23 sec SV(LVOT): 66.5 ml Reading Physician:12:53 PM
== END ==
PROVIDERS: PCP Internal Medicine; Referring Provider Internal Medicine Cardiovascular Disease; Visit Provider Internal Medicine Cardiovascular Disease
DX: I08.3 Combined rheumatic disorders of mitral, aortic and tricuspid valves (principal); I77.89 Other specified disorders of arteries and arterioles; R01.1 Cardiac murmur, unspecified
CPT/HCPCS: 93306

== ENCOUNTER → 2023-01-07 17:11 | Outpatient (CLI) | payer MEDICARE, OTHER, SELFPAY ==
[2023-01-07 17:46] LABS: Alanine Aminotransferase 29 IU/L (<50); Albumin 4.4 g/dL (3.5-5.0); Albumin Globulin Ratio 1.5 (1.0-2.8); Alkaline Phosphatase 97 U/L (38-126); Aspartate Aminotransferase 29 IU/L (17-59); BUN Creatinine Ratio 20.5 (6-22); Bilirubin Total 0.8 mg/dL (0.2-1.3); Blood Urea Nitrogen 24 mg/dL (9-20); Calcium 9.1 mg/dL (8.4-10.2); Carbon Dioxide 31 mmol/L (22-32); Chloride 101 mmol/L (98-107); Estimated Glomerular Filt Rate > 60 mL/min (>60); Glucose 107 mg/dL (80-110); HEMOLYSIS < 15 (0-50); Lipase 77 U/L (23-300); Potassium 4.2 mmol/L (3.4-5.1); Sodium 139 mmol/L (137-145); Total Protein 7.4 g/dL (6.3-8.2)
[2023-01-07 17:48] LABS: Add Manual Diff / Slide Review NO; Basophils Absolute Auto 100 /uL (0-100); Basophils Percent Auto 0.7 % (0-2); Eosinophils Absolute Auto 200 /uL (0-450); Eosinophils Percent Auto 3.3 % (2-4); Hematocrit 44.2 % (41-53); Hemoglobin 14.9 g/dL (13.5-17.5); Lymphocytes Absolute Auto 1300 /uL (1100-4500); Lymphocytes Percent Auto 17.4 % (25-40); Mean Corpuscular HGB Conc 33.8 % (30-36); Mean Corpuscular Hemoglobin 31.2 PG (26-34); Mean Corpuscular Volume 92.4 fL (80-100); Monocytes Absolute Auto 900 /uL (0-900); Monocytes Percent Auto 11.6 % (3-14); Neutrophils Absolute Auto 5000 /uL (1500-7000); Platelet Count 144 X10^3/uL (150-400); Red Blood Cell Count 4.78 X10^6/uL (4.5-5.9); Red Cell Distribution Width 13.1 % (11.6-14.8); White Blood Cell Count 7.4 X10^3/uL (4.5-11.0)
[2023-01-07 18:45] LABS: TSH w/ Reflex to FT4 1.22 uIU/mL (0.47-4.68)
[2023-01-07 20:06] LABS: Erythrocyte Sedimentation Rate 5 MM/HR (0-15)
== END ==
PROVIDERS: PCP Internal Medicine; Referring Provider Internal Medicine; Visit Provider Internal Medicine
DX: E78.2 Mixed hyperlipidemia (principal); I10 Essential (primary) hypertension; I25.10 Atherosclerotic heart disease of native coronary artery without angina pectoris
CPT/HCPCS: 36415; 80053; 83690; 84443; 85025; 85651

== ENCOUNTER 2023-01-09 11:52 | Emergency (ER) | payer MEDICARE, OTHER, SELFPAY ==
[2023-01-09] VITALS (10 sets, daily range): BP systolic 144–180; BP diastolic 74–87; PULSE 59–75; RESP 16–29; TEMP 36.9; O2SAT 95–98; BMI 25.3
--- NOTE | 2023-01-09 12:07 | DI.RAD.S_ITS ---
PROCEDURE: XR CHEST 1V INDICATIONS: chest pain TECHNIQUE: One view of the chest was acquired. COMPARISON: [facility], CR, XR CHEST 1V, 06/10/2021, 17:37. FINDINGS: Surgical changes and devices: None. Lungs and pleura: Lungs are clear. No pleural effusions or pneumothorax. Mediastinum: Mediastinal contours appear normal. Heart size is normal. Bones and chest wall: No suspicious bony lesions. Overlying soft tissues appear unremarkable. IMPRESSION: No acute cardiopulmonary abnormality. Dictated by: Jose Sung M.D. on 01/09/2023 at 12:18 Approved by: Jose Sung M.D. on 01/09/2023 at 12:18
[2023-01-09 12:13] LABS: Add Manual Diff / Slide Review NO; Basophils Absolute Auto 0 /uL (0-100); Basophils Percent Auto 0.5 % (0-2); Eosinophils Absolute Auto 200 /uL (0-450); Eosinophils Percent Auto 3.2 % (2-4); Hemoglobin 14.8 g/dL (13.5-17.5); Lymphocytes Absolute Auto 1400 /uL (1100-4500); Lymphocytes Percent Auto 18.8 % (25-40); Mean Corpuscular Hemoglobin 30.8 PG (26-34); Mean Corpuscular Volume 93.3 fL (80-100); Monocytes Absolute Auto 900 /uL (0-900); Monocytes Percent Auto 12.5 % (3-14); Neutrophils Absolute Auto 4900 /uL (1500-7000); Platelet Count 148 X10^3/uL (150-400); Red Blood Cell Count 4.82 X10^6/uL (4.5-5.9); Red Cell Distribution Width 13.6 % (11.6-14.8); White Blood Cell Count 7.5 X10^3/uL (4.5-11.0)
[2023-01-09 12:21] LABS: Prothrombin Time 11.9 SECONDS (10.1-12.7)
[2023-01-09 12:24] LABS: PTT Partial Thromboplastin Tim 29 SECONDS (26-36)
[2023-01-09 12:25] LABS: Blood Urea Nitrogen 20 mg/dL (9-20); Carbon Dioxide 29 mmol/L (22-32); Chloride 104 mmol/L (98-107); Creatine Kinase 90 U/L (55-170); HEMOLYSIS < 15 (0-50); Sodium 138 mmol/L (137-145)
[2023-01-09 12:26] LABS: Alanine Aminotransferase 27 IU/L (<50); Albumin 4.2 g/dL (3.5-5.0); Albumin Globulin Ratio 1.4 (1.0-2.8); Alkaline Phosphatase 82 U/L (38-126); Aspartate Aminotransferase 27 IU/L (17-59); BUN Creatinine Ratio 19.2 (6-22); Estimated Glomerular Filt Rate > 60 mL/min (>60); Globulin 3.1 g/dL (1.7-4.1); Glucose 114 mg/dL (80-110); Lipase 66 U/L (23-300); Total Protein 7.3 g/dL (6.3-8.2)
[2023-01-09 12:37] LABS: Troponin I < 0.012 ng/mL (0.01-0.034)
--- NOTE | 2023-01-09 12:50 | ED.GENADULT ---
HPI - General Adult General Chief complaint: Dizziness Stated complaint: heart palpitations, dizziness Time Seen by Provider: 01/09/23 12:05 Source: patient Mode of arrival: Ambulatory Limitations: no limitations History of Present Illness HPI narrative: Patient is a 87-year-old male not on anticoagulation who is here for evaluation of heart palpitations and dizziness. His symptoms have actually been going on for the past several weeks. He is also noticed some decreased exercise tolerance. He saw his primary doctor earlier this week for this. Had labs and an EKG. They discussed a Holter monitor. He has not started this. He states that today he was doing some coughing around the house when he stood up became lightheaded. He states that this frequently happens when he changes position. It does fatigue after short period of time. He is not having any chest pain. He did not actually pass out today. He states that today symptoms lasted longer than prior. No swelling in his legs. No abdominal pain but does have some nausea. Related Data Home Medications Medication Instructions Recorded Confirmed aspirin 81 mg tablet,delayed 81 mg PO DAILY ##0 07/17/11 01/07/23 release nitroglycerin 0.4 mg sublingual 0.4 mg sublingual Q5M PRN 09/11/19 01/07/23 tablet amlodipine 2.5 mg tablet 2.5 mg PO DAILY 02/12/22 01/07/23 atorvastatin 80 mg tablet 80 mg PO DAILY 02/12/22 01/07/23 Previous Rx's Medication Instructions Recorded losartan 50 mg tablet 50 mg PO BID HTN #180 tabs 12/30/21 omeprazole 20 mg capsule,delayed 20 mg PO DAILY #90 caps 01/07/23 release Allergies Allergy/AdvReac Type Severity Reaction Status Date / Time No Known Drug Allergies Allergy Unknown Verified 01/07/23 16:31 [NO KNOWN DRUG ALLERGIES] Review of Systems Constitutional Constitutional: Reports system reviewed and no additional complaints, except as documented Cardiovascular Cardiovascular: Reports system reviewed and no additional complaints, except as documented Respiratory Respiratory: Reports system reviewed and no additional complaints, except as documented Gastrointestinal Gastrointestinal: Reports system reviewed and no additional complaints, except as documented Genitourinary Genitourinary: Reports system reviewed and no additional complaints, except as documented Integumentary/Breasts Skin/Breast: Reports system reviewed and no additional complaints, except as documented Neurologic Neurologic: Reports system reviewed and no additional complaints, except as documented Hematologic/Lymphatic On Anticoagulants: No Patient History Medical History Allergic rhinitis BPH w urinary obs/LUTS Coronary artery disease (~2000) Essential hypertension GERD (gastroesophageal reflux disease) Hearing loss Hematuria (05/01/14) History of kidney cancer (~1999) History of malignant melanoma of skin 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 Melanoma (~2014) Mixed hyperlipidemia RBBB (right bundle branch block with left anterior fascicular block) Vertigo (~2015) Surgical History Anesthesia History of kidney surgery (~1999) S/P coronary artery stent placement (~1999) Family History Brother Heart disease Father Heart disease Mother Stroke Colon cancer Social History household members: spouse Smoking Status: Former smoker alcohol intake: current substance use type: does not use Smoking Status: Former smoker alcohol intake frequency: 0-2 drinks per day Alcohol type: wine Substance Use Type: does not use Exam Initial Vital Signs Initial Vital Signs: Vital Signs Temperature 98.4 F 01/09/23 12:05 Pulse Rate 74 01/09/23 12:05 Respiratory Rate 16 01/09/23 12:05 Blood Pressure 180/87 H 01/09/23 12:05 Pulse Oximetry 97 01/09/23 12:05 Oxygen Delivery Method Room Air 01/09/23 12:05 Const General: cooperative, comfortable and No ill appearing [facility] Head: normal to inspection and normocephalic Resp Effort & Inspection: normal respiratory effort Auscultation: clear to auscultation bilaterally Cardio Rate: regular rate Rhythm: regular rhythm Skin General: no rashes or lesions noted Neuro General: patient alert, patient awake and moves all extremities Extrem General: normal to inspection and capillary refill normal Course Orders Ordered: ED Orders 01/09/23 12:06 Complete Blood Count AUTO DIFF Stat Comprehensive Metabolic Panel Stat Lipase Stat Magnesium Stat PTT Partial Thromboplastin César Stat Prothrombin Time INR Stat Troponin & CK Cardiac Panel Stat 01/09/23 12:07 XR chest 1V Stat EKG-12 Lead Stat Vital Signs Vital signs: Vital Signs - 8 hr 01/09/23 12:05 Temperature 98.4 F Pulse Rate 74 Respiratory Rate 16 Blood Pressure 180/87 H Pulse Oximetry 97 Oxygen Delivery Method Room Air Medical Decision Making Medical Records Medical records reviewed: Yes I reviewed the patient's medical records. Lab Data Lab results reviewed: Yes I reviewed the patient's lab results. 01/09/23 12:06 01/09/23 12:06 Labs: Lab Results 01/09/23 01/09/23 01/09/23 Range/Units 12:06 12:06 12:06 WBC 7.5 (4.5-11.0) X10^3/uL RBC 4.82 (4.5-5.9) X10^6/uL Hgb 14.8 (13.5-17.5) g/dL Hct 45.0 (41-53) % MCV 93.3 (80-100) fL MCH 30.8 (26-34) PG MCHC 33.0 (30-36) % RDW 13.6 (11.6-14.8) % Plt Count 148 L (150-400) X10^3/uL Neut % (Auto) 65.0 (50-75) % Lymph % (Auto) 18.8 L (25-40) % Harney % (Auto) 12.5 (3-14) % Eos % (Auto) 3.2 (2-4) % Baso % (Auto) 0.5 (0-2) % Neut # (Auto) 4900 (7652-7711) /uL Lymph # (Auto) 1400 (1339-7727) /uL Harney # (Auto) 900 (0-900) /uL Eos # (Auto) 200 (0-450) /uL Baso # (Auto) 0 (0-100) /uL PT 11.9 (10.1-12.7) SECONDS INR 1.0 (0.9-1.3) APTT 29 (26-36) SECONDS Sodium 138 (137-145) mmol/L Potassium 4.0 (3.4-5.1) mmol/L Chloride 104 (98-107) mmol/L Carbon Dioxide 29 (22-32) mmol/L BUN 20 (9-20) mg/dL Creatinine 1.04 (0.66-1.25) mg/dL Estimated GFR > 60 (>60) mL/min BUN/Creatinine Ratio 19.2 (6-22) Glucose 114 H (80-110) mg/dL Calcium 9.0 (8.4-10.2) mg/dL Magnesium 2.0 (1.6-2.3) mg/dL Total Bilirubin 1.0 (0.2-1.3) mg/dL AST 27 (17-59) IU/L ALT 27 (<50) IU/L Alkaline Phosphatase 82 (38-126) U/L Total Creatine Kinase 90 (55-170) U/L CK-MB (CK-2) TNP CK-MB (CK-2) Rel Index TNP Troponin I < 0.012 (0.01-0.034) ng/mL Total Protein 7.3 (6.3-8.2) g/dL Albumin 4.2 (3.5-5.0) g/dL Globulin 3.1 (1.7-4.1) g/dL Albumin/Globulin Ratio 1.4 (1.0-2.8) Lipase 66 (23-300) U/L ECG Data Attestation: I personally reviewed and interpreted this ECG as follows: Interpretation: Sinus rhythm Ventricular rate is 77 First-degree AV block ME interval 244 milliseconds Right bundle-branch block Left anterior fascicular block Very similar in appearance to the description from his primary doctor's office visit 2 days ago[address] [facility] Narrative Medical decision making narrative: EKG today is similar to prior. Labs are unremarkable. Blood pressure is unremarkable. He has seen his primary doctor regarding this and there is a plan in place for him to have a Holter monitor. Low suspicion for ACS, CVA, TIA, seizure. I suspect that it is either an arrhythmia or potential hypotension. Will discharge patient home with return precautions. He expressed understanding and agreement. Discharge Plan Departure Patient Disposition: Home Clinical Impression: Pre-syncope Instructions: DI for Dizziness-Nonvertigo Activity Restrictions/Additional Instructions: I do recommend that you take all of your medications as directed. Contact your primary doctor for follow-up. Return in the emergency department for any new or worsening symptoms. Prescriptions: No Action aspirin 81 mg Tablet,Delayed Release (Dr/Ec) 81 mg PO DAILY Qty: 0 losartan 50 mg tablet 50 mg PO BID Qty: 180 2RF omeprazole 20 mg capsule,delayed release(DR/EC) 20 mg PO DAILY Qty: 90 3RF nitroglycerin 0.4 mg tablet, sublingual 0.4 mg SL Q5M PRN amlodipine 2.5 mg tablet 2.5 mg PO DAILY Patient Comments: take 1 tablet by mouth once daily atorvastatin 80 mg tablet 80 mg PO DAILY Referrals: Vahe Melendez MD [Primary Care Provider] - Stand Alone Forms: Patient Portal/API
== END 2023-01-09 13:24 | disposition home or self-care (01) ==
PROVIDERS: Emergency Provider Emergency Medicine; PCP Internal Medicine
DX: R55 Syncope and collapse (principal); R42 Dizziness and giddiness; R00.2 Palpitations; R11.0 Nausea
CPT/HCPCS: 36415; 71045; 80053; 82550; 83690; 83735; 84484; 85025; 85610; 85730; 93005; 93010; 99283; 99284

== ENCOUNTER → 2023-01-14 13:46 | Outpatient (CLI) | payer MEDICARE, OTHER, SELFPAY | PROVIDERS: PCP Internal Medicine; Referring Provider Internal Medicine; Visit Provider Internal Medicine | DX: R00.1 Bradycardia, unspecified (principal) | CPT/HCPCS: 93242 ==

== ENCOUNTER 2023-01-15 17:48 | Emergency (ER) | payer MEDICARE, OTHER, SELFPAY ==
[2023-01-15] VITALS (45 sets, daily range): BP systolic 117–206; BP diastolic 56–96; PULSE 40–84; RESP 10–29; TEMP 36.9; O2SAT 95–99; BMI 24.4
--- NOTE | 2023-01-15 18:04 | DI.RAD.S_ITS ---
PROCEDURE: XR CHEST 1V INDICATIONS: chest pain TECHNIQUE: One view of the chest was acquired. COMPARISON: [facility], CR, XR CHEST 1V, 01/09/2023, 12:17. FINDINGS: Surgical changes and devices: Wireless pacer is present. Lungs and pleura: Lungs are clear. No pleural effusions or pneumothorax. Mediastinum: Mediastinal contours appear normal. Heart size is enlarged. Bones and chest wall: No suspicious bony lesions. Overlying soft tissues appear unremarkable. IMPRESSION: No acute pulmonary process. Dictated by: Michelle Mathis M.D. on 01/15/2023 at 18:31 Approved by: Michelle Mathis M.D. on 01/15/2023 at 18:31
[2023-01-15 18:19] LABS: Add Manual Diff / Slide Review NO; Basophils Absolute Auto 0 /uL (0-100); Basophils Percent Auto 0.5 % (0-2); Eosinophils Absolute Auto 200 /uL (0-450); Eosinophils Percent Auto 2.6 % (2-4); Hematocrit 43.5 % (41-53); Hemoglobin 14.8 g/dL (13.5-17.5); Lymphocytes Absolute Auto 1600 /uL (1100-4500); Lymphocytes Percent Auto 18.1 % (25-40); Mean Corpuscular HGB Conc 34.1 % (30-36); Mean Corpuscular Hemoglobin 31.4 PG (26-34); Mean Corpuscular Volume 91.9 fL (80-100); Monocytes Absolute Auto 1000 /uL (0-900); Monocytes Percent Auto 11.4 % (3-14); Neutrophils Absolute Auto 5900 /uL (1500-7000); Neutrophils Percent Auto 67.4 % (50-75); Platelet Count 138 X10^3/uL (150-400); Red Blood Cell Count 4.73 X10^6/uL (4.5-5.9); Red Cell Distribution Width 13.2 % (11.6-14.8); White Blood Cell Count 8.7 X10^3/uL (4.5-11.0)
[2023-01-15 18:22] LABS: Prothrombin Time 11.6 SECONDS (10.1-12.7)
[2023-01-15 18:24] LABS: PTT Partial Thromboplastin Tim 30 SECONDS (26-36)
[2023-01-15] MEDS: ASPIRIN 81 MG CHEW TAB 324 MG PO (18:25)
[2023-01-15 18:34] LABS: Alanine Aminotransferase 28 IU/L (<50); Albumin 4.3 g/dL (3.5-5.0); Albumin Globulin Ratio 1.3 (1.0-2.8); Alkaline Phosphatase 96 U/L (38-126); Aspartate Aminotransferase 32 IU/L (17-59); Bilirubin Total 1.3 mg/dL (0.2-1.3); Blood Urea Nitrogen 26 mg/dL (9-20); Calcium 9.5 mg/dL (8.4-10.2); Carbon Dioxide 27 mmol/L (22-32); Chloride 101 mmol/L (98-107); Creatine Kinase 200 U/L (55-170); Estimated Glomerular Filt Rate 60 mL/min (>60); Globulin 3.2 g/dL (1.7-4.1); Glucose 114 mg/dL (80-110); HEMOLYSIS < 15 (0-50); Lipase 71 U/L (23-300); Potassium 4.1 mmol/L (3.4-5.1); Sodium 138 mmol/L (137-145); Total Protein 7.5 g/dL (6.3-8.2)
[2023-01-15 18:38] LABS: COVID19 -Nasal RAPID Negative (Negative)
[2023-01-15 18:46] LABS: Troponin I < 0.012 ng/mL (0.01-0.034)
[2023-01-15 18:50] LABS: CKMB % Relative Index 2.4 % (1.5-5.0)
[2023-01-15] MEDS: NITROGLYCERIN 0.4 MG SL TAB SL (18:58)
--- NOTE | 2023-01-15 19:53 | ED.GENADULT ---
HPI - General Adult General Chief complaint: Hypertension Stated complaint: High BP, Ref from DR Melendez Time Seen by Provider: 01/15/23 17:54 Source: patient Mode of arrival: Ambulatory History of Present Illness HPI narrative: 87-year-old male former smoker with history of hypertension, hyperlipidemia, presyncope, coronary artery disease presents for evaluation of high blood pressure and dizziness that has been going off and on for least the past week or 2. The patient states that he has been persistently dizzy for the past at least for 5 days. He had been here and seen on last Wednesday and had a thorough evaluation without any significant findings, followed up with his primary care provider who then gave him a ZIO patch. He denies any new or changed medications. He states that when he stands he becomes dizzy and lightheaded. He states that with exertion he becomes fatigued and lightheaded. He denies any actual syncopal events. He denies chest pain or shortness of breath. He is had no nausea, vomiting or diarrhea Related Data Home Medications Medication Instructions Recorded Confirmed aspirin 81 mg tablet,delayed 81 mg PO DAILY ##0 07/17/11 01/07/23 release nitroglycerin 0.4 mg sublingual 0.4 mg sublingual Q5M PRN 09/11/19 01/07/23 tablet amlodipine 2.5 mg tablet 2.5 mg PO DAILY 02/12/22 01/07/23 atorvastatin 80 mg tablet 80 mg PO DAILY 02/12/22 01/07/23 Previous Rx's Medication Instructions Recorded losartan 50 mg tablet 50 mg PO BID HTN #180 tabs 12/30/21 omeprazole 20 mg capsule,delayed 20 mg PO DAILY #90 caps 01/07/23 release Allergies Allergy/AdvReac Type Severity Reaction Status Date / Time No Known Drug Allergies Allergy Unknown Verified 01/15/23 18:03 [NO KNOWN DRUG ALLERGIES] Review of Systems Review of Systems Narrative: GENERAL: Denies chills, fatigue, malaise, fever, sweats. HEENT: Denies sinus pain, ear pain, sore throat, difficulty swallowing, dizziness. RESPIRATORY: Denies dyspnea, cough, wheezing, hemoptysis, sputum. CARDIOVASCULAR: See HPI GASTROINTESTINAL: Denies nausea, vomiting, abdominal pain, diarrhea, constipation, melena. : Denies dysuria, frequency, incontinence, hematuria, urinary retention. MUSCULOSKELETAL: denies weakness, joint pain, or bony pain SKIN: Denies rash, skin lesions, or other NEUROLOGIC: Denies weakness, headache, numbness, change in speech, confusion, seizures, incoordination. PSYCHIATRIC: No concerning psychosocial issues. 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 Melanoma (~2014) Mixed hyperlipidemia RBBB (right bundle branch block with left anterior fascicular block) Vertigo (~2015) Surgical History Anesthesia History of kidney surgery (~1999) S/P coronary artery stent placement (~1999) Family History Brother Heart disease Father Heart disease Mother Stroke Colon cancer Social History household members: spouse Smoking Status: Former smoker alcohol intake: current substance use type: does not use Smoking Status: Former smoker alcohol intake frequency: 0-2 drinks per day Alcohol type: wine Substance Use Type: does not use Exam Narrative Exam Narrative: GENERAL: [87] year old patient appears stated age. Well-developed patient, in mild distress. HEAD: Atraumatic. Normocephalic. EYES: Pupils equal round and reactive. Extraocular motions intact. No scleral icterus. No injection or drainage. ENT: Nose without bleeding, purulent drainage. Throat without erythema, tonsillar hypertrophy or exudate. Airway patent. NECK: Trachea midline. Non tender CARDIOVASCULAR: Regular rate and rhythm without murmurs, gallops, or rubs. RESPIRATORY: Clear to auscultation. Breath sounds equal bilaterally. No wheezes, rales, or rhonchi. GASTROINTESTINAL: Abdomen soft, non-tender, nondistended. EXTREMITIES: No edema or joint tenderness. BACK: Nontender without deformity or crepitance. No flank tenderness. NEURO: AOx3. SKIN: No rash or erythema of visible areas Initial Vital Signs Initial Vital Signs: Vital Signs Temperature 98.5 F 01/15/23 17:55 Pulse Rate 84 01/15/23 17:55 Respiratory Rate 15 01/15/23 17:55 Blood Pressure 206/96 H 01/15/23 17:55 Pulse Oximetry 98 01/15/23 17:55 Oxygen Delivery Method Room Air 01/15/23 17:55 Course Orders Ordered: ED Orders 01/15/23 18:04 XR chest 1V Stat 01/15/23 18:05 Complete Blood Count AUTO DIFF Stat Comprehensive Metabolic Panel Stat Lipase Stat Magnesium Stat PTT Partial Thromboplastin César Stat Prothrombin Time INR Stat Troponin & CK Cardiac Panel Stat 01/15/23 18:15 EKG-12 Lead Stat 01/15/23 18:20 COVID19 -Nasal RAPID Stat Nitroglycerin (Nitroglycerin 0.4 Mg Sl Tab) 0.4 mg SL [id number] PRN PRN Reason: Chest Pain Last Admin: 01/15/23 18:58 Dose: 0.4 mg Documented By: NR Discontinued Medications Aspirin (Aspirin 81 Mg Chew Tab) 324 mg PO NOW ONE Stop: 01/15/23 18:22 Last Admin: 01/15/23 18:25 Dose: 324 mg Documented By: SB Reevaluation(s) Reevaluation #1: patient fatigued at rest, but not lightheaded. Able to walk to bathroom and becomes SOB and lightheaded Reevaluation #2: patient now back in NSR in the 60s/70s Consultations Consultation #1: discussed with [facility] Cardio (Krystin), recommends transfer for likely pacemaker. Consultation #2: No beds at [facility] No beds at [facility] No beds at [facility] Possible bed at Consultation #3: discussed with hospitalist at [facility] ([facility]). Happy to accept patient in transfer Vital Signs Vital signs: Vital Signs - 8 hr 01/15/23 18:23 01/15/23 18:24 01/15/23 18:24 Pulse Rate 47 L 48 L Respiratory Rate 14 17 Blood Pressure 194/86 H Pulse Oximetry 97 98 Oxygen Delivery Method Room Air 01/15/23 18:30 01/15/23 18:30 01/15/23 18:40 Pulse Rate 41 L Respiratory Rate 24 Blood Pressure 182/84 H 163/74 H Pulse Oximetry 96 Oxygen Delivery Method 01/15/23 18:40 01/15/23 18:58 01/15/23 18:50 Pulse Rate 41 L 40 L Respiratory Rate 20 Blood Pressure 176/76 H 176/76 H Pulse Oximetry 97 Oxygen Delivery Method 01/15/23 18:50 01/15/23 19:00 01/15/23 19:01 Pulse Rate 50 L 41 L 41 L Respiratory Rate 20 25 H 26 H Blood Pressure Pulse Oximetry 97 98 96 Oxygen Delivery Method 01/15/23 19:01 01/15/23 19:10 01/15/23 19:11 Pulse Rate 42 L Respiratory Rate 16 Blood Pressure 117/56 L 138/63 Pulse Oximetry 95 Oxygen Delivery Method 01/15/23 19:11 01/15/23 19:22 01/15/23 19:23 Pulse Rate 42 L 58 L 43 L Respiratory Rate 15 12 Blood Pressure Pulse Oximetry 95 96 95 Oxygen Delivery Method 01/15/23 19:23 01/15/23 19:30 01/15/23 19:31 Pulse Rate 42 L 42 L Respiratory Rate 23 19 Blood Pressure 188/79 H Pulse Oximetry 96 97 Oxygen Delivery Method 01/15/23 19:31 01/15/23 19:40 01/15/23 19:40 Pulse Rate 40 L Respiratory Rate 18 Blood Pressure 153/70 H 154/67 H Pulse Oximetry 97 Oxygen Delivery Method 01/15/23 19:50 01/15/23 19:50 01/15/23 20:00 Pulse Rate 40 L Respiratory Rate 19 Blood Pressure 162/70 H 167/78 H Pulse Oximetry 97 Oxygen Delivery Method 01/15/23 20:00 01/15/23 20:10 01/15/23 20:11 Pulse Rate 44 L 43 L Respiratory Rate 18 16 Blood Pressure 163/72 H Pulse Oximetry 97 97 Oxygen Delivery Method 01/15/23 20:11 01/15/23 20:20 01/15/23 20:21 Pulse Rate 76 63 51 L Respiratory Rate 17 16 14 Blood Pressure Pulse Oximetry 97 96 95 Oxygen Delivery Method 01/15/23 20:21 01/15/23 20:30 01/15/23 20:30 Pulse Rate 61 Respiratory Rate 15 Blood Pressure 160/72 H 130/76 Pulse Oximetry 97 Oxygen Delivery Method 01/15/23 20:40 01/15/23 20:41 01/15/23 20:41 Pulse Rate 71 71 Respiratory Rate 14 17 Blood Pressure 158/78 H Pulse Oximetry 97 97 Oxygen Delivery Method 01/15/23 20:50 01/15/23 20:50 01/15/23 21:00 Pulse Rate 72 Respiratory Rate 10 L Blood Pressure 136/75 141/82 H Pulse Oximetry 96 Oxygen Delivery Method 01/15/23 21:00 01/15/23 21:10 01/15/23 21:20 Pulse Rate 70 68 71 Respiratory Rate 17 26 H 29 H Blood Pressure Pulse Oximetry 96 97 96 Oxygen Delivery Method 01/15/23 21:30 01/15/23 21:40 01/15/23 21:50 Pulse Rate 68 66 66 Respiratory Rate 18 19 19 Blood Pressure Pulse Oximetry 97 97 97 Oxygen Delivery Method 01/15/23 22:00 01/15/23 22:01 01/15/23 22:01 Pulse Rate 66 65 Respiratory Rate 24 15 Blood Pressure 143/74 H Pulse Oximetry 96 95 Oxygen Delivery Method 01/15/23 22:10 01/15/23 22:20 01/15/23 22:30 Pulse Rate 65 65 63 Respiratory Rate 15 15 13 Blood Pressure Pulse Oximetry 96 96 96 Oxygen Delivery Method 01/15/23 22:40 01/15/23 22:50 01/15/23 23:00 Pulse Rate 62 62 Respiratory Rate 18 13 Blood Pressure 152/75 H Pulse Oximetry 96 96 Oxygen Delivery Method 01/15/23 23:00 01/15/23 23:10 01/15/23 23:20 Pulse Rate 64 66 65 Respiratory Rate 14 16 19 Blood Pressure Pulse Oximetry 97 95 96 Oxygen Delivery Method 01/15/23 23:30 01/15/23 23:40 01/15/23 23:50 Pulse Rate 63 61 59 L Respiratory Rate 24 16 Blood Pressure Pulse Oximetry 98 99 99 Oxygen Delivery Method 01/16/23 00:00 01/16/23 00:10 01/16/23 00:20 Pulse Rate 58 L 59 L 59 L Respiratory Rate 10 L 13 15 Blood Pressure Pulse Oximetry 98 98 97 Oxygen Delivery Method 01/16/23 00:29 01/16/23 00:29 01/16/23 00:30 Pulse Rate 59 L Respiratory Rate 16 Blood Pressure 162/81 H Pulse Oximetry 96 97 Oxygen Delivery Method Medical Decision Making Lab Data 01/15/23 18:05 01/15/23 18:05 Labs: Lab Results 01/15/23 01/15/23 01/15/23 Range/Units 18:05 18:05 18:05 WBC 8.7 (4.5-11.0) X10^3/uL RBC 4.73 (4.5-5.9) X10^6/uL Hgb 14.8 (13.5-17.5) g/dL Hct 43.5 (41-53) % MCV 91.9 (80-100) fL MCH 31.4 (26-34) PG MCHC 34.1 (30-36) % RDW 13.2 (11.6-14.8) % Plt Count 138 L (150-400) X10^3/uL Neut % (Auto) 67.4 (50-75) % Lymph % (Auto) 18.1 L (25-40) % [place] % (Auto) 11.4 (3-14) % Eos % (Auto) 2.6 (2-4) % Baso % (Auto) 0.5 (0-2) % Neut # (Auto) 5900 (2624-1823) /uL Lymph # (Auto) 1600 (0987-0758) /uL [place] # (Auto) 1000 H (0-900) /uL Eos # (Auto) 200 (0-450) /uL Baso # (Auto) 0 (0-100) /uL PT 11.6 (10.1-12.7) SECONDS INR 1.0 (0.9-1.3) APTT 30 (26-36) SECONDS Sodium 138 (137-145) mmol/L Potassium 4.1 (3.4-5.1) mmol/L Chloride 101 (98-107) mmol/L Carbon Dioxide 27 (22-32) mmol/L BUN 26 H (9-20) mg/dL Creatinine 1.18 (0.66-1.25) mg/dL Estimated GFR 60 (>60) mL/min BUN/Creatinine Ratio 22.0 (6-22) Glucose 114 H (80-110) mg/dL Calcium 9.5 (8.4-10.2) mg/dL Magnesium 2.0 (1.6-2.3) mg/dL Total Bilirubin 1.3 (0.2-1.3) mg/dL AST 32 (17-59) IU/L ALT 28 (<50) IU/L Alkaline Phosphatase 96 (38-126) U/L Total Creatine Kinase 200 H (55-170) U/L CK-MB (CK-2) 4.70 H (<2.37) ng/mL CK-MB (CK-2) Rel Index 2.4 (1.5-5.0) % Troponin I < 0.012 (0.01-0.034) ng/mL Total Protein 7.5 (6.3-8.2) g/dL Albumin 4.3 (3.5-5.0) g/dL Globulin 3.2 (1.7-4.1) g/dL Albumin/Globulin Ratio 1.3 (1.0-2.8) Lipase 71 (23-300) U/L SARS-CoV-2 (PCR) (Negative) 01/15/23 Range/Units 18:20 WBC (4.5-11.0) X10^3/uL RBC (4.5-5.9) X10^6/uL Hgb (13.5-17.5) g/dL Hct (41-53) % MCV (80-100) fL MCH (26-34) PG MCHC (30-36) % RDW (11.6-14.8) % Plt Count (150-400) X10^3/uL Neut % (Auto) (50-75) % Lymph % (Auto) (25-40) % [place] % (Auto) (3-14) % Eos % (Auto) (2-4) % Baso % (Auto) (0-2) % Neut # (Auto) (1957-8385) /uL Lymph # (Auto) (3946-9616) /uL [place] # (Auto) (0-900) /uL Eos # (Auto) (0-450) /uL Baso # (Auto) (0-100) /uL PT (10.1-12.7) SECONDS INR (0.9-1.3) APTT (26-36) SECONDS Sodium (137-145) mmol/L Potassium (3.4-5.1) mmol/L Chloride (98-107) mmol/L Carbon Dioxide (22-32) mmol/L BUN (9-20) mg/dL Creatinine (0.66-1.25) mg/dL Estimated GFR (>60) mL/min BUN/Creatinine Ratio (6-22) Glucose (80-110) mg/dL Calcium (8.4-10.2) mg/dL Magnesium (1.6-2.3) mg/dL Total Bilirubin (0.2-1.3) mg/dL AST (17-59) IU/L ALT (<50) IU/L Alkaline Phosphatase (38-126) U/L Total Creatine Kinase (55-170) U/L CK-MB (CK-2) (<2.37) ng/mL CK-MB (CK-2) Rel Index (1.5-5.0) % Troponin I (0.01-0.034) ng/mL Total Protein (6.3-8.2) g/dL Albumin (3.5-5.0) g/dL Globulin (1.7-4.1) g/dL Albumin/Globulin Ratio (1.0-2.8) Lipase (23-300) U/L SARS-CoV-2 (PCR) Negative (Negative) Urine Dip Bedside Urine Glucose Negative Bedside Urine Bilirubin - Negative Bedside Urine Ketone - Negative Urine Specific [place] 1.020 Bedside Urine Occult Blood - Negative Bedside Urine pH 6.0 Bedside Urine Protein - Negative Bedside Urine Urobilinogen - Negative Bedside Urine Nitrite - Negative Bedside Urine Leukocytes - Negative Esterase Point of care testing: Urine Dip Bedside Urine Glucose Negative Bedside Urine Bilirubin - Negative Bedside Urine Ketone - Negative Urine Specific [place] 1.020 Bedside Urine Occult Blood - Negative Bedside Urine pH 6.0 Bedside Urine Protein - Negative Bedside Urine Urobilinogen - Negative Bedside Urine Nitrite - Negative Bedside Urine Leukocytes - Negative Esterase MDM Narrative Medical decision making narrative: [87] year old patient presents with lightheadedness with exertion for the past week Multiple etiologies for patient's symptoms considered including, but not limited to: [arrhythmia vs cardiac ischemia vs. electrolyte abnormality vs. other] Prior Charts reviewed in our EMR Primary Historian: patient Labs reviewed and interpreted by myself: No significant abnormality Imaging reviewed: No significant abnormality EKG: Second-degree type 2 av block with right bundle branch, dropping every other QRS complex. Consultations: Discussed with local Cardiology, also hospitalist at [facility]. Please see details above Patient requires transfer for definitive care of his Ain arrhythmia, likely will need a pacemaker. He understands that this could very well happen and agrees with receiving that procedure if needed. Though he would prefer to keep his care locally he understands the need to be at a facility with cardiac services Critical Care Time Critical Care Time Critical Care Time: Yes Total Critical Care Time: 30 Attestation: The high probability of a clinically significant, sudden or life threatening deterioration of the [CV] system(s) required my full and direct attention, intervention and personal management. The aggregate critical care time was [30] minutes. This time is in addition to time spent performing reported procedures but includes the following: [x] Data Review and interpretation [x] Patient assessment and monitoring of vital signs [x] Documentation []x Medication orders and management Discharge Plan Departure Patient Disposition: [facility] Clinical Impression: Second degree AV block, Mobitz type II Prescriptions: No Action aspirin 81 mg Tablet,Delayed Release (Dr/Ec) 81 mg PO DAILY Qty: 0 losartan 50 mg tablet 50 mg PO BID Qty: 180 2RF omeprazole 20 mg capsule,delayed release(DR/EC) 20 mg PO DAILY Qty: 90 3RF nitroglycerin 0.4 mg tablet, sublingual 0.4 mg SL Q5M PRN amlodipine 2.5 mg tablet 2.5 mg PO DAILY Patient Comments: take 1 tablet by mouth once daily atorvastatin 80 mg tablet 80 mg PO DAILY Referrals: Vahe Melendez MD [Primary Care Provider] -
[2023-01-16] VITALS (19 sets, daily range): BP systolic 162–202; BP diastolic 81–91; PULSE 58–68; RESP 10–45; O2SAT 93–98
== END 2023-01-16 02:40 | disposition short-term general hospital (02) ==
PROVIDERS: Emergency Provider Emergency Medicine; PCP Internal Medicine
DX: I44.1 Atrioventricular block, second degree (principal); R42 Dizziness and giddiness; R07.9 Chest pain, unspecified; Z20.822 Contact with and (suspected) exposure to COVID-19
CPT/HCPCS: 36415; 71045; 80053; 81003; 82550; 82553; 83690; 83735; 84484; 85025; 85610; 85730; 87635; 93005; 93010; 99284; C9803

== ENCOUNTER → 2023-01-20 10:36 | Outpatient (CLI) | payer MEDICARE, OTHER, SELFPAY ==
[2023-01-20 11:19] LABS: Influenza A - CEPHEID Flu A NEGATIVE (NEGATIVE); Influenza B - CEPHEID Flu B NEGATIVE (NEGATIVE); Respiratory Syncytial Virus Negative (Negative)
[2023-01-20 11:20] LABS: COVID-19 CEPHEID 4-PLEX PCR Negative (Negative)
== END ==
PROVIDERS: PCP Internal Medicine; Visit Provider Nurse Practitioner Family
DX: R05.1 Acute cough (principal)
CPT/HCPCS: 0241U

== ENCOUNTER 2023-01-20 10:54 | Emergency (ER) | payer MEDICARE, OTHER, SELFPAY ==
[2023-01-20] VITALS (13 sets, daily range): BP systolic 128–186; BP diastolic 60–82; PULSE 40–72; RESP 18–21; TEMP 36.6; O2SAT 95–99
--- NOTE | 2023-01-20 11:07 | ED.GENADULT ---
HPI - General Adult General Chief complaint: Dizziness Stated complaint: sent by [facility] SOB/dizzy/cough T-5 Time Seen by Provider: 01/20/23 10:56 Source: patient Mode of arrival: Ambulatory Limitations: no limitations History of Present Illness HPI narrative: Patient is a 87-year-old male. Has been seen multiple times here in the emergency department for symptoms are similar to what he presents with today. He is most recently seen within the past week and sent to [facility] after being found that he was in a Mobitz type 2 heart block. He was transferred for evaluation of potential pacemaker however he states that after spending a short time at [facility] he was discharged. He never received the pacemaker. He is unsure as to why he did not. Since that time he has continued to have shortness of breath dizziness specifically when he stands and walks around. He denies chest pain. He also states that he has been having a cough. He denies any fevers. No lower extremity swelling. Is on amlodipine but no other jono blocking agents. Related Data Home Medications Medication Instructions Recorded Confirmed aspirin 81 mg tablet,delayed 81 mg PO DAILY ##0 07/17/11 01/20/23 release nitroglycerin 0.4 mg sublingual 0.4 mg sublingual Q5M PRN 09/11/19 01/20/23 tablet amlodipine 2.5 mg tablet 2.5 mg PO DAILY 02/12/22 01/20/23 atorvastatin 80 mg tablet 80 mg PO DAILY 02/12/22 01/20/23 Previous Rx's Medication Instructions Recorded losartan 50 mg tablet 50 mg PO BID HTN #180 tabs 12/30/21 omeprazole 20 mg capsule,delayed 20 mg PO DAILY #90 caps 01/07/23 release Allergies Allergy/AdvReac Type Severity Reaction Status Date / Time No Known Drug Allergies Allergy Unknown Verified 01/20/23 10:28 [NO KNOWN DRUG ALLERGIES] Review of Systems Constitutional Constitutional: Reports system reviewed and no additional complaints, except as documented Cardiovascular Cardiovascular: Reports system reviewed and no additional complaints, except as documented Respiratory Respiratory: Reports system reviewed and no additional complaints, except as documented Gastrointestinal Gastrointestinal: Reports system reviewed and no additional complaints, except as documented Neurologic Neurologic: Reports system reviewed and no additional complaints, except as documented Hematologic/Lymphatic Hematologic/Lymphatic: Reports system reviewed and no additional complaints, except as documented On Anticoagulants: No Patient History Medical History Allergic rhinitis BPH w urinary obs/LUTS Coronary artery disease (~2000) Essential hypertension GERD (gastroesophageal reflux disease) Hearing loss Hematuria (05/01/14) History of kidney cancer (~1999) History of malignant melanoma of skin 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 Melanoma (~2014) Mixed hyperlipidemia RBBB (right bundle branch block with left anterior fascicular block) Vertigo (~2015) Surgical History Anesthesia History of kidney surgery (~1999) S/P coronary artery stent placement (~1999) Family History Brother Heart disease Father Heart disease Mother Stroke Colon cancer Social History household members: spouse Smoking Status: Former smoker alcohol intake: current substance use type: does not use Smoking Status: Former smoker alcohol intake frequency: 0-2 drinks per day Alcohol type: wine Substance Use Type: does not use Exam Initial Vital Signs Initial Vital Signs: Vital Signs Temperature 98 F 01/20/23 11:04 Pulse Rate 45 L 01/20/23 11:04 Respiratory Rate 18 01/20/23 11:04 Blood Pressure 169/72 H 01/20/23 11:04 Pulse Oximetry 98 01/20/23 11:04 Oxygen Delivery Method Room Air 01/20/23 11:04 Const General: cooperative, comfortable and No ill appearing [facility] Head: normal to inspection and normocephalic Resp Effort & Inspection: normal respiratory effort Auscultation: clear to auscultation bilaterally Cardio Rate: regular rate Rhythm: regular rhythm Skin General: no rashes or lesions noted Neuro General: patient alert, patient awake, patient oriented x3 and moves all extremities Cognition: normal cognition Speech: speech normal Extrem General: normal to inspection and capillary refill normal Course Orders Ordered: ED Orders 01/20/23 11:10 XR chest 1V Stat EKG-12 Lead Stat 01/20/23 11:11 Complete Blood Count AUTO DIFF Stat Comprehensive Metabolic Panel Stat Lipase Stat Magnesium Stat PTT Partial Thromboplastin César Stat Prothrombin Time INR Stat Troponin & CK Cardiac Panel Stat 01/20/23 11:24 Respiratory Panel (Film Array) Stat 01/20/23 11:54 EKG-12 Lead Stat Discontinued Medications Benzonatate (Benzonatate 100 Mg Capsule) 100 mg PO NOW ONE Stop: 01/20/23 11:58 Last Admin: 01/20/23 12:11 Dose: 100 mg Documented By: [facility]U Vital Signs Vital signs: Vital Signs - 8 hr 01/20/23 11:04 01/20/23 11:30 01/20/23 12:00 Temperature 98 F Pulse Rate 45 L 40 L 70 Respiratory Rate 18 Blood Pressure 169/72 H 132/60 128/70 Pulse Oximetry 98 98 99 Oxygen Delivery Method Room Air Room Air Room Air 01/20/23 12:30 01/20/23 13:00 01/20/23 13:30 Temperature Pulse Rate 66 63 63 Respiratory Rate 20 19 21 Blood Pressure 131/61 133/61 139/65 Pulse Oximetry 97 98 96 Oxygen Delivery Method Room Air Room Air Room Air 01/20/23 14:00 01/20/23 15:00 01/20/23 15:30 Temperature Pulse Rate 72 68 Respiratory Rate 18 18 Blood Pressure 182/82 H 154/73 H 148/70 H Pulse Oximetry 96 96 Oxygen Delivery Method Room Air Room Air 01/20/23 16:00 01/20/23 16:30 01/20/23 17:00 Temperature Pulse Rate 69 65 68 Respiratory Rate 18 20 Blood Pressure 160/76 H 143/69 H Pulse Oximetry 95 96 98 Oxygen Delivery Method Room Air Room Air Room Air 01/20/23 18:00 Temperature Pulse Rate 67 Respiratory Rate Blood Pressure 186/71 H Pulse Oximetry 97 Oxygen Delivery Method Room Air Medical Decision Making Medical Records Medical records reviewed: Yes I reviewed the patient's medical records. Lab Data Lab results reviewed: Yes I reviewed the patient's lab results. 01/20/23 11:11 01/20/23 11:11 Labs: Lab Results 01/20/23 01/20/23 01/20/23 Range/Units 11:11 11:11 11:11 WBC 11.9 H (4.5-11.0) X10^3/uL RBC 4.40 L (4.5-5.9) X10^6/uL Hgb 13.6 (13.5-17.5) g/dL Hct 41.0 (41-53) % MCV 93.3 (80-100) fL MCH 30.9 (26-34) PG MCHC 33.1 (30-36) % RDW 13.4 (11.6-14.8) % Plt Count 148 L (150-400) X10^3/uL Neut % (Auto) 76.9 H (50-75) % Lymph % (Auto) 6.4 L (25-40) % [place] % (Auto) 14.6 H (3-14) % Eos % (Auto) 1.9 L (2-4) % Baso % (Auto) 0.2 (0-2) % Neut # (Auto) 9100 H (7256-1330) /uL Lymph # (Auto) 800 L (1087-0921) /uL [place] # (Auto) 1700 H (0-900) /uL Eos # (Auto) 200 (0-450) /uL Baso # (Auto) 0 (0-100) /uL PT 12.3 (10.1-12.7) SECONDS INR 1.1 (0.9-1.3) APTT 28 (26-36) SECONDS Sodium 134 L (137-145) mmol/L Potassium 3.8 (3.4-5.1) mmol/L Chloride 99 (98-107) mmol/L Carbon Dioxide 27 (22-32) mmol/L BUN 17 (9-20) mg/dL Creatinine 1.14 (0.66-1.25) mg/dL Estimated GFR > 60 (>60) mL/min BUN/Creatinine Ratio 14.9 (6-22) Glucose 121 H (80-110) mg/dL Calcium 9.2 (8.4-10.2) mg/dL Magnesium 2.0 (1.6-2.3) mg/dL Total Bilirubin 1.5 H (0.2-1.3) mg/dL AST 22 (17-59) IU/L ALT 22 (<50) IU/L Alkaline Phosphatase 70 (38-126) U/L Total Creatine Kinase 48 L (55-170) U/L CK-MB (CK-2) TNP CK-MB (CK-2) Rel Index TNP Troponin I 0.017 (0.01-0.034) ng/mL Total Protein 7.4 (6.3-8.2) g/dL Albumin 3.9 (3.5-5.0) g/dL Globulin 3.5 (1.7-4.1) g/dL Albumin/Globulin Ratio 1.1 (1.0-2.8) Lipase 43 (23-300) U/L Chlamy pneumoniae PCR (Not Detect) Adenovirus (PCR) (Not Detect) B. pertussis DNA (PCR) (Not Detecte) B.parapertussis DNA PCR (Not Detecte) Coronavirus OC43 (PCR) (Not Detect) Coronavirus HKU1 (PCR) (Not Detect) Coronavirus 229E (PCR) (Not Detect) SARS-CoV-2 (PCR) (Not Detecte) Coronavirus NL63 (PCR) (Not Detect) Human Metapneumovir PCR (Not Detect) Influenza Type A (PCR) (Not Detect) Influenza Type B (PCR) (Not Detect) M. pneumoniae (PCR) (Not Detect) Parainfluenza 1 (PCR) (Not Detect) Parainfluenza 2 (PCR) (Not Detect) Parainfluenza 3 (PCR) (Not Detect) Parainfluenza 4 (PCR) (Not Detect) RSV (PCR) (Not Detect) Entero/Rhino (PCR) (Not Detect) 01/20/23 Range/Units 11:24 WBC (4.5-11.0) X10^3/uL RBC (4.5-5.9) X10^6/uL Hgb (13.5-17.5) g/dL Hct (41-53) % MCV (80-100) fL MCH (26-34) PG MCHC (30-36) % RDW (11.6-14.8) % Plt Count (150-400) X10^3/uL Neut % (Auto) (50-75) % Lymph % (Auto) (25-40) % [place] % (Auto) (3-14) % Eos % (Auto) (2-4) % Baso % (Auto) (0-2) % Neut # (Auto) (7330-7391) /uL Lymph # (Auto) (2012-1373) /uL [place] # (Auto) (0-900) /uL Eos # (Auto) (0-450) /uL Baso # (Auto) (0-100) /uL PT (10.1-12.7) SECONDS INR (0.9-1.3) APTT (26-36) SECONDS Sodium (137-145) mmol/L Potassium (3.4-5.1) mmol/L Chloride (98-107) mmol/L Carbon Dioxide (22-32) mmol/L BUN (9-20) mg/dL Creatinine (0.66-1.25) mg/dL Estimated GFR (>60) mL/min BUN/Creatinine Ratio (6-22) Glucose (80-110) mg/dL Calcium (8.4-10.2) mg/dL Magnesium (1.6-2.3) mg/dL Total Bilirubin (0.2-1.3) mg/dL AST (17-59) IU/L ALT (<50) IU/L Alkaline Phosphatase (38-126) U/L Total Creatine Kinase (55-170) U/L CK-MB (CK-2) CK-MB (CK-2) Rel Index Troponin I (0.01-0.034) ng/mL Total Protein (6.3-8.2) g/dL Albumin (3.5-5.0) g/dL Globulin (1.7-4.1) g/dL Albumin/Globulin Ratio (1.0-2.8) Lipase (23-300) U/L Chlamy pneumoniae PCR Not detected (Not Detect) Adenovirus (PCR) Not detected (Not Detect) B. pertussis DNA (PCR) Not detected (Not Detecte) B.parapertussis DNA PCR Not detected (Not Detecte) Coronavirus OC43 (PCR) Not detected (Not Detect) Coronavirus HKU1 (PCR) Not detected (Not Detect) Coronavirus 229E (PCR) Not detected (Not Detect) SARS-CoV-2 (PCR) Not detected (Not Detecte) Coronavirus NL63 (PCR) Not detected (Not Detect) Human Metapneumovir PCR Not detected (Not Detect) Influenza Type A (PCR) Not detected (Not Detect) Influenza Type B (PCR) Not detected (Not Detect) M. pneumoniae (PCR) Not detected (Not Detect) Parainfluenza 1 (PCR) Not detected (Not Detect) Parainfluenza 2 (PCR) Not detected (Not Detect) Parainfluenza 3 (PCR) Not detected (Not Detect) Parainfluenza 4 (PCR) Not detected (Not Detect) RSV (PCR) Not detected (Not Detect) Entero/Rhino (PCR) Not detected (Not Detect) Imaging Data Chest x-ray: Radiologist's Impression: PROCEDURE:? XR CHEST 1V ? INDICATIONS:? cough eval for PNA ? TECHNIQUE:? One view of the chest was acquired.? ? COMPARISON:? [facility], CR, XR CHEST 1V, 01/09/2023, 12:17.? [facility], CR, XR CHEST 1V, 01/15/2023, 18:08. ? FINDINGS:? ? Surgical changes and devices:? None.? ? Lungs and pleura:? Chronic interstitial prominence.? Left basilar opacity may be scars or atelectasis.? Superimposed pneumonia cannot be excluded.? Right diaphragmatic eventration.? No pleural effusions or pneumothorax.? ? Mediastinum:? Mediastinal contours appear normal.? Heart size is normal.? ? Bones and chest wall:? No suspicious bony lesions.? Overlying soft tissues appear unremarkable.? ? IMPRESSION:? ? 1. Left lower lobe opacity may be scars or atelectasis but superimposed acute pneumonia cannot be excluded.? ECG Data Attestation: I personally reviewed and interpreted this ECG as follows: Prior ECG tracings: available for review Interpretation: Presentation EKG Sinus bradycardia Ventricular rate of 47 TN interval 230 milliseconds Left axis deviation Right bundle-branch block 2-1 AV block with dropping every other beat Repeat EKG Sinus rhythm First-degree AV block TN interval of 264 milliseconds Ventricular rate is 68 Left axis deviation Right bundle-branch block MDM Narrative Medical decision making narrative: I have evaluated the patient in the emergency department the past for presyncopal episode. Had an unremarkable workup during that time. He re-presented to the emergency department and saw 1 of my partners. He was found at that time to be an a two-to-one type 2 av block. At a heart rate in the 40s. He was getting lightheaded and short of breath at the time. Cardiology was consulted and he was eventually transferred to [facility] for evaluation and discussion about pacemaker placement. He did not receive the pacemaker that time. I was able to get notes from that visit. Apparently when he was at [facility] he was in a sinus rhythm with a normal blood pressure and heart rate in the 60s to 80s. The decision was made to not put a pacemaker in at the time however to have an event monitor as an outpatient. Patient states that since he was discharged he has again become very lightheaded specifically with standing up. Is also having short of breath. No chest pain. He has not passed out. On arrival here today he had once again a two-to-one type 2 av block with a rate in the 40s. It did go as low as 39. Blood pressure has been unremarkable. He is alert oriented x3. When he is lying in bed he is asymptomatic from this. He is on amlodipine but no other jono blocking agents. His labs are relatively unremarkable. 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 I then discussed the case with Dr. Valdovinos at [facility] who agrees to see the patient upon transfer but would like the patient admitted to the medicine service. While we were waiting for transfer the patient did have episodes of having a sinus rhythm in the rate in the 60s to 80s. We were able to catch this on EKG. Because he was sitting at the time this change in rate and rhythm was asymptomatic to the patient. Patient has been observed for the past several hours. His heart rate now is in the sinus rhythm I did discuss the case with Dr. Bergman hospitalist that [facility] who accepts the patient in transfer. Patient is stable for transport. Discharge Plan Departure Patient Disposition: [facility] Clinical Impression: Mobitz type 1 second degree atrioventricular block, Bradycardia Prescriptions: No Action aspirin 81 mg Tablet,Delayed Release (Dr/Ec) 81 mg PO DAILY Qty: 0 losartan 50 mg tablet 50 mg PO BID Qty: 180 2RF omeprazole 20 mg capsule,delayed release(DR/EC) 20 mg PO DAILY Qty: 90 3RF nitroglycerin 0.4 mg tablet, sublingual 0.4 mg SL Q5M PRN amlodipine 2.5 mg tablet 2.5 mg PO DAILY Patient Comments: take 1 tablet by mouth once daily atorvastatin 80 mg tablet 80 mg PO DAILY Referrals: Vahe Melendez MD [Primary Care Provider] -
--- NOTE | 2023-01-20 11:10 | DI.RAD.S_ITS ---
PROCEDURE: XR CHEST 1V INDICATIONS: cough eval for PNA TECHNIQUE: One view of the chest was acquired. COMPARISON: [facility], CR, XR CHEST 1V, 01/09/2023, 12:17. [facility], CR, XR CHEST 1V, 01/15/2023, 18:08. FINDINGS: Surgical changes and devices: None. Lungs and pleura: Chronic interstitial prominence. Left basilar opacity may be scars or atelectasis. Superimposed pneumonia cannot be excluded. Right diaphragmatic eventration. No pleural effusions or pneumothorax. Mediastinum: Mediastinal contours appear normal. Heart size is normal. Bones and chest wall: No suspicious bony lesions. Overlying soft tissues appear unremarkable. IMPRESSION: 1. Left lower lobe opacity may be scars or atelectasis but superimposed acute pneumonia cannot be excluded. Dictated by: Akbar Person M.D. on 01/20/2023 at 11:41 Approved by: Akbar Person M.D. on 01/20/2023 at 12:01
[2023-01-20 11:26] LABS: Add Manual Diff / Slide Review NO; Basophils Absolute Auto 0 /uL (0-100); Basophils Percent Auto 0.2 % (0-2); Eosinophils Absolute Auto 200 /uL (0-450); Eosinophils Percent Auto 1.9 % (2-4); Hemoglobin 13.6 g/dL (13.5-17.5); Lymphocytes Absolute Auto 800 /uL (1100-4500); Lymphocytes Percent Auto 6.4 % (25-40); Mean Corpuscular HGB Conc 33.1 % (30-36); Mean Corpuscular Hemoglobin 30.9 PG (26-34); Mean Corpuscular Volume 93.3 fL (80-100); Monocytes Absolute Auto 1700 /uL (0-900); Monocytes Percent Auto 14.6 % (3-14); Neutrophils Absolute Auto 9100 /uL (1500-7000); Neutrophils Percent Auto 76.9 % (50-75); Platelet Count 148 X10^3/uL (150-400); Red Cell Distribution Width 13.4 % (11.6-14.8); White Blood Cell Count 11.9 X10^3/uL (4.5-11.0)
[2023-01-20 11:39] LABS: INR 1.1 (0.9-1.3); Prothrombin Time 12.3 SECONDS (10.1-12.7)
[2023-01-20 11:42] LABS: PTT Partial Thromboplastin Tim 28 SECONDS (26-36)
[2023-01-20 11:44] LABS: Alanine Aminotransferase 22 IU/L (<50); Albumin 3.9 g/dL (3.5-5.0); Albumin Globulin Ratio 1.1 (1.0-2.8); Alkaline Phosphatase 70 U/L (38-126); Aspartate Aminotransferase 22 IU/L (17-59); BUN Creatinine Ratio 14.9 (6-22); Bilirubin Total 1.5 mg/dL (0.2-1.3); Blood Urea Nitrogen 17 mg/dL (9-20); Calcium 9.2 mg/dL (8.4-10.2); Carbon Dioxide 27 mmol/L (22-32); Chloride 99 mmol/L (98-107); Creatine Kinase 48 U/L (55-170); Estimated Glomerular Filt Rate > 60 mL/min (>60); Globulin 3.5 g/dL (1.7-4.1); Glucose 121 mg/dL (80-110); HEMOLYSIS < 15 (0-50); Lipase 43 U/L (23-300); Potassium 3.8 mmol/L (3.4-5.1); Sodium 134 mmol/L (137-145); Total Protein 7.4 g/dL (6.3-8.2)
[2023-01-20 11:56] LABS: Troponin I 0.017 ng/mL (0.01-0.034)
[2023-01-20] MEDS: BENZONATATE 100 MG CAPSULE PO ×2 (12:11→18:46)
[2023-01-20 12:18] LABS: Adenovirus Not Detected (Not Detect); B. parapertussis Not Detected (Not Detecte); Bordetella pertussis Not Detected (Not Detecte); Chlamydophila pneumoniae Not Detected (Not Detect); Coronavirus 229E Not Detected (Not Detect); Coronavirus HKU1 Not Detected (Not Detect); Coronavirus NL 63 Not Detected (Not Detect); Coronavirus OC43 Not Detected (Not Detect); Human Metapneumovirus Not Detected (Not Detect); Human Rhinovirus/Enterovirus Not Detected (Not Detect); Influenza A Not Detected (Not Detect); Influenza B Not Detected (Not Detect); Mycoplasma pneumoniae Not Detected (Not Detect); Parainfluenza Virus 1 Not Detected (Not Detect); Parainfluenza Virus 2 Not Detected (Not Detect); Parainfluenza Virus 3 Not Detected (Not Detect); Parainfluenza Virus 4 Not Detected (Not Detect); Respiratory Syncytial Virus Not Detected (Not Detect); SARS- CoV-2 Not Detected (Not Detecte)
== END 2023-01-20 21:10 | disposition short-term general hospital (02) ==
PROVIDERS: Emergency Provider Emergency Medicine; PCP Internal Medicine
DX: I44.1 Atrioventricular block, second degree (principal); R00.1 Bradycardia, unspecified; R05.9 Cough, unspecified; Z20.822 Contact with and (suspected) exposure to COVID-19; R05.1 Acute cough
CPT/HCPCS: 0241U; 36415; 71045; 80053; 82550; 83690; 83735; 84484; 85025; 85610; 85730; 87633; 93005; 93010; 99284

== ENCOUNTER → 2023-04-15 08:21 | Outpatient (CLI) | payer MEDICARE, OTHER, SELFPAY ==
[2023-04-15 10:15] LABS: Alanine Aminotransferase 24 IU/L (<50); Albumin Globulin Ratio 1.5 (1.0-2.8); Alkaline Phosphatase 84 U/L (38-126); Aspartate Aminotransferase 24 IU/L (17-59); BUN Creatinine Ratio 16.7 (6-22); Blood Urea Nitrogen 18 mg/dL (9-20); Calcium 9.1 mg/dL (8.4-10.2); Carbon Dioxide 30 mmol/L (22-32); Chloride 102 mmol/L (98-107); Cholesterol 117 mg/dL (140-199); Estimated Glomerular Filt Rate > 60 mL/min (>60); Globulin 2.7 g/dL (1.7-4.1); Glucose 85 mg/dL (80-110); HDL Cholesterol 38 mg/dL (40-60); HEMOLYSIS < 15 (0-50); LDL Cholesterol Calculated 63 mg/dL (<100); Potassium 4.3 mmol/L (3.4-5.1); Sodium 139 mmol/L (137-145); Total Protein 6.7 g/dL (6.3-8.2); Triglycerides 80 mg/dL (35-150)
== END ==
PROVIDERS: PCP Internal Medicine; Referring Provider Internal Medicine Cardiovascular Disease; Visit Provider Internal Medicine Cardiovascular Disease
DX: E78.00 Pure hypercholesterolemia, unspecified (principal)
CPT/HCPCS: 36415; 80053; 80061

== ENCOUNTER → 2023-06-14 09:44 | Outpatient (CLI) | payer MEDICARE, OTHER, SELFPAY ==
--- NOTE | 2023-06-14 18:58 | DI.NM.S_ITS ---
DATE OF SERVICE: 06/14/2023 PROCEDURE PERFORMED: Pharmacologic vasodilator stress and rest myocardial perfusion imaging with gating to assess ejection fraction and regional wall motion. ORDERING PROVIDER: Andres Mays MD. INDICATIONS: The patient is an 87-year-old male with a history of multi- vessel stenting and previous inferior infarction with recent pacemaker placement. CARDIAC STRESS: Per protocol, 0.4 mg of regadenoson was infused with a normal hemodynamic response. He had no chest discomfort. His resting ECG shows sinus rhythm with a right bundle branch block and probable old inferior infarction. With stress, ventricular pacing becomes predominant, limiting the ability to assess the ST segments. There were no significant arrhythmias. Per protocol, 23.9 millicuries of technetium-99m Myoview was injected and he was imaged 20 minutes later using a quantitated gated SPECT acquisition protocol. Earlier in the day while at rest, he was injected with 8.0 mCi of technetium-99m Myoview and was imaged 20 minutes later, again using a quantitated gated SPECT protocol. FINDINGS: 1. Raw data: There is fairly good myocardial tracer uptake. The lung/heart ratio is at the upper limits of normal at 0.42, although it is not visually evident. The TID ratio is normal at 1.06. 2. Quantitated gated SPECT: Post-stress ejection fraction is estimated at 63% with moderate hypokinesis throughout the inferior wall but normal contractility elsewhere. The resting ejection fraction is 59% with a mildly increased resting end-diastolic volume of 148 mL. 3. Myocardial perfusion imaging: Post-stress supine images shows a significant perfusion defect throughout the entire inferior wall but sparing the apex, and is more profound proximally. While this could reflect diaphragmatic attenuation, this defect persists to a mild degree on the prone images, extending into the inferolateral segment, but still sparing the very distal portion of the inferior wall and apex. The resting images show a near identical perfusion pattern to that ofthe post-stress supine images without any obvious improvement in the inferior perfusion defect. IMPRESSION: 1. Abnormal myocardial perfusion study. 2. 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 3. Preserved left ventricular systolic function with inferior wall hypokinesis and mildly increased end-diastolic volumes. 4. No angina or ECG evidence of ischemia with pharmacologic vasodilator stress, although ventricular pacing with stress precludes ST-segment analysis. There were no arrhythmias otherwise. Michael Nilesh - CITLALI/radha/elliott doc#: [id number]/job#: [id number] dd: 06/14/2023 17:07:00 dt: 06/14/2023 18:46:00 DICTATING MD/COPIES TO: Demetrio Martinez MD; Andres Mays MD COPIES MNE: JACOB;
== END ==
PROVIDERS: PCP Internal Medicine; Referring Provider Internal Medicine Cardiovascular Disease; Visit Provider Internal Medicine Cardiovascular Disease
DX: I25.10 Atherosclerotic heart disease of native coronary artery without angina pectoris (principal); R94.39 Abnormal result of other cardiovascular function study; I25.2 Old myocardial infarction; I10 Essential (primary) hypertension; E78.5 Hyperlipidemia, unspecified; Z95.5 Presence of coronary angioplasty implant and graft; Z95.0 Presence of cardiac pacemaker
CPT/HCPCS: 78452; 93017; A9502; J2785

== ENCOUNTER → 2023-11-17 14:38 | Outpatient (CLI) | payer MEDICARE, OTHER, SELFPAY ==
[2023-11-17 15:17] LABS: Hematocrit 44.1 % (41-53); Hemoglobin 14.9 g/dL (13.5-17.5); Mean Corpuscular HGB Conc 33.9 % (30-36); Mean Corpuscular Hemoglobin 31.1 PG (26-34); Mean Corpuscular Volume 91.9 fL (80-100); Platelet Count 142 X10^3/uL (150-400); Red Cell Distribution Width 13.5 % (11.6-14.8); White Blood Cell Count 7.7 X10^3/uL (4.5-11.0)
[2023-11-17 15:56] LABS: Alanine Aminotransferase 23 IU/L (<50); Albumin 4.3 g/dL (3.5-5.0); Albumin Globulin Ratio 1.5 (1.0-2.8); Alkaline Phosphatase 73 U/L (38-126); Aspartate Aminotransferase 28 IU/L (17-59); BUN Creatinine Ratio 23.3 (6-22); Bilirubin Total 0.9 mg/dL (0.2-1.3); Blood Urea Nitrogen 24 mg/dL (9-20); Calcium 9.9 mg/dL (8.4-10.2); Carbon Dioxide 24 mmol/L (22-32); Chloride 102 mmol/L (98-107); Estimated Glomerular Filt Rate > 60 mL/min (>60); Globulin 2.9 g/dL (1.7-4.1); Glucose 103 mg/dL (80-110); HEMOLYSIS 41 (0-50); Potassium 4.6 mmol/L (3.4-5.1); Sodium 138 mmol/L (137-145); Total Protein 7.2 g/dL (6.3-8.2)
== END ==
LOC: LAB 14:40
PROVIDERS: PCP Internal Medicine; Referring Provider Internal Medicine; Visit Provider Internal Medicine
DX: I95.1 Orthostatic hypotension (principal); J01.90 Acute sinusitis, unspecified; B96.89 Other specified bacterial agents as the cause of diseases classified elsewhere
CPT/HCPCS: 36415; 80053; 85027

== ENCOUNTER → 2024-02-06 13:02 | Outpatient (CLI) | payer MEDICARE, OTHER, SELFPAY ==
--- NOTE | 2024-02-06 13:04 | DI.RAD.S_ITS ---
PROCEDURE: XR CHEST 2V INDICATIONS: CP and cough TECHNIQUE: 2 views of the chest were acquired. COMPARISON: [facility], CR, XR CHEST 1V, 01/20/2023, 11:25. FINDINGS: Surgical changes and devices: Dual-chamber pacemaker present. Lungs and pleura: Lungs are clear. No pleural effusions or pneumothorax. Mediastinum: Mediastinal contours are normal. Heart size is normal. Bones and chest wall: No suspicious bony abnormalities. Soft tissues appear unremarkable. IMPRESSION: No acute cardiopulmonary abnormality is seen. Approved by: Aamir Cummins M.D. on 02/06/2024 at 13:11
== END ==
PROVIDERS: PCP Internal Medicine; Referring Provider Physician Assistant Medical; Visit Provider Physician Assistant Medical
DX: R05.9 Cough, unspecified (principal); Z95.0 Presence of cardiac pacemaker
CPT/HCPCS: 71046

== ENCOUNTER 2024-02-09 10:36 | Emergency (ER) | payer MEDICARE, OTHER, SELFPAY ==
[2024-02-09] VITALS (10 sets, daily range): BP systolic 156–180; BP diastolic 71–91; PULSE 65–77; RESP 14–24; TEMP 36.7; O2SAT 94–98; BMI 25.0
--- NOTE | 2024-02-09 10:53 | ED.URI ---
HPI - URI/Sore Throat General Chief Complaint: Shortness of Breath/Dyspnea Stated Complaint: lightheaded, sent by nurse Time Seen by Provider: 02/09/24 10:39 History of Present Illness HPI Narrative: 88-year-old male presents by private vehicle from home for nonproductive cough and wheezing. Patient is seen at the walk-in clinic on 02/05 for same, he was diagnosed with bronchitis and sinusitis and discharged with prednisone and doxycycline prescription. Negative chest x-ray at that time. Patient states that he will cough so hard that he gets lightheaded. He went back to the walk-in clinic, however they referred him to the ER for additional evaluation. Patient denies history of asthma, but states that he was an albuterol inhaler at home, although that Related Data Home Medications Medication Instructions Recorded Confirmed aspirin 81 mg tablet,delayed 81 mg PO DAILY ##0 07/17/11 02/06/24 release nitroglycerin 0.4 mg sublingual 0.4 mg sublingual Q5M PRN 09/11/19 02/06/24 tablet Previous Rx's Medication Instructions Recorded losartan 50 mg tablet 50 mg PO BID HTN #180 tabs 12/30/21 amlodipine 5 mg tablet 5 mg PO DAILY #90 tabs 04/16/23 omeprazole 20 mg capsule,delayed 20 mg PO DAILY #90 caps 07/09/23 release atorvastatin 80 mg tablet 40 mg (1/2 x 80 mg) PO DAILY #90 09/03/23 tabs doxycycline hyclate 100 mg capsule 100 mg PO BID #14 caps 02/06/24 prednisone 20 mg tablet 40 mg (2 x 20 mg) PO DAILY #10 tabs 02/06/24 albuterol sulfate 90 mcg/actuation 2 puff inhalation Q6H PRN 02/09/24 aerosol inhaler shortness of breath or wheezing #8.5 grams Allergies Allergy/AdvReac Type Severity Reaction Status Date / Time No Known Drug Allergies Allergy Unknown Verified 02/10/24 07:38 [NO KNOWN DRUG ALLERGIES] Review of Systems Review of Systems Narrative: See HPI Patient History Medical History Presence of cardiac pacemaker (~12/2022) Allergic rhinitis Hearing loss GERD (gastroesophageal reflux disease) 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) Coronary artery disease (~2000) History of malignant melanoma of skin Lytic bone lesion of hip History of kidney cancer (~1999) Mixed hyperlipidemia Essential hypertension Vertigo (~2015) Melanoma (~2014) Hematuria (05/01/14) Surgical History S/P coronary artery stent placement (~1999) Anesthesia History of kidney surgery (~1999) Family History Brother Heart disease Father Heart disease Mother Stroke Colon cancer Social History household members: spouse Smoking Status: Former smoker alcohol intake: current substance use type: does not use Smoking Status: Former smoker alcohol intake frequency: 0-2 drinks per day Alcohol type: wine Substance Use Type: does not use Exam Initial Vital Signs Initial Vital Signs: Vital Signs Blood Pressure 180/81 H 02/09/24 10:42 Const: Awake, alert, no acute distress, nontoxic appearing Cardiac: regular rate, regular rhythm RESP: Expiratory wheezes upper lung garduno, speaking in complete sentences without dyspnea GI: Soft, nontender, nondistended, no rebound, no guarding MSK: Atraumatic, full range of motion, pulses equal, no edema Skin: Warm, Dry, intact, no rashes Neuro: AO x3, CN II-XII grossly intact, moves all extremities Course Orders Ordered: Discontinued Medications Albuterol (Albuterol 2.5 Mg/3 Ml Neb (Adult)) 2.5 mg INH NOW ONE Stop: 02/09/24 11:40 Last Admin: 02/09/24 11:43 Dose: 2.5 mg Documented By: MICHELLE Vital Signs Vital signs: Vital Signs - 8 hr 02/09/24 10:42 02/09/24 10:43 02/09/24 10:50 Temperature 98.1 F Pulse Rate 77 75 Respiratory Rate 14 Blood Pressure 180/81 H 180/91 H Pulse Oximetry 96 95 Oxygen Delivery Method Room Air 02/09/24 11:00 02/09/24 11:01 02/09/24 11:01 Temperature Pulse Rate 69 69 Respiratory Rate 14 17 Blood Pressure 160/74 H Pulse Oximetry 98 97 Oxygen Delivery Method 02/09/24 11:30 02/09/24 11:30 02/09/24 12:00 Temperature Pulse Rate 65 65 Respiratory Rate 24 Blood Pressure 167/77 H Pulse Oximetry 95 95 Oxygen Delivery Method 02/09/24 12:30 02/09/24 12:31 02/09/24 12:31 Temperature Pulse Rate 71 73 Respiratory Rate 20 23 Blood Pressure 157/71 H Pulse Oximetry 94 94 Oxygen Delivery Method MDM - URI/Sore Throat Differential Diagnosis Differential diagnosis: Likely upper respiratory infection, bronchitis and influenza Lab Data 02/09/24 11:35 02/09/24 11:35 Labs: Lab Results 02/09/24 02/09/24 Range/Units 10:45 11:35 WBC 8.2 (4.5-11.0) X10^3/uL RBC 4.61 (4.5-5.9) X10^6/uL Hgb 14.5 (13.5-17.5) g/dL Hct 42.7 (41-53) % MCV 92.8 (80-100) fL MCH 31.5 (26-34) PG MCHC 34.0 (30-36) % RDW 13.1 (11.6-14.8) % Plt Count 167 (150-400) X10^3/uL Neut % (Auto) 86.8 H (50-75) % Lymph % (Auto) 6.6 L (25-40) % Glenn % (Auto) 5.9 (3-14) % Eos % (Auto) 0.3 L (2-4) % Baso % (Auto) 0.4 (0-2) % Neut # (Auto) 7100 H (5827-5044) /uL Lymph # (Auto) 500 L (5144-5066) /uL Glenn # (Auto) 500 (0-900) /uL Eos # (Auto) 0 (0-450) /uL Baso # (Auto) 0 (0-100) /uL PT 11.2 (9.4-12.5) SECONDS INR 1.0 (0.9-1.3) Sodium 139 (137-145) mmol/L Potassium 3.9 (3.4-5.1) mmol/L Chloride 107 (98-107) mmol/L Carbon Dioxide 24 (22-32) mmol/L BUN 22 H (9-20) mg/dL Creatinine 0.96 (0.66-1.25) mg/dL Estimated GFR > 60 (>60) mL/min BUN/Creatinine Ratio 22.9 H (6-22) Glucose 130 H (80-110) mg/dL Lactate 2.1 (0.7-2.1) mmol/L Calcium 9.9 (8.4-10.2) mg/dL Total Bilirubin 0.7 (0.2-1.3) mg/dL AST 29 (17-59) IU/L ALT 28 (<50) IU/L Alkaline Phosphatase 83 (38-126) U/L Troponin I < 0.012 (0.01-0.034) ng/mL NT-Pro-B Natriuret Pep 512 H (<450) pg/mL Total Protein 7.6 (6.3-8.2) g/dL Albumin 4.2 (3.5-5.0) g/dL Globulin 3.4 (1.7-4.1) g/dL Albumin/Globulin Ratio 1.2 (1.0-2.8) Chlamy pneumoniae PCR Not detected (Not Detect) Adenovirus (PCR) Not detected (Not Detect) B.parapertussis DNA PCR Not detected (Not Detecte) Coronavirus OC43 (PCR) Not detected (Not Detect) Coronavirus HKU1 (PCR) Not detected (Not Detect) Coronavirus 229E (PCR) Not detected (Not Detect) SARS-CoV-2 (PCR) Not detected (Not Detecte) Coronavirus NL63 (PCR) Not detected (Not Detect) Human Metapneumovir PCR Detected H (Not Detect) Influenza Type A (PCR) Not detected (Not Detect) Influenza Type B (PCR) Not detected (Not Detect) M. pneumoniae (PCR) Not detected (Not Detect) Parainfluenza 1 (PCR) Not detected (Not Detect) Parainfluenza 2 (PCR) Not detected (Not Detect) Parainfluenza 3 (PCR) Not detected (Not Detect) Parainfluenza 4 (PCR) Not detected (Not Detect) RSV (PCR) Not detected (Not Detect) Entero/Rhino (PCR) Not detected (Not Detect) Imaging Data Chest x-ray: Radiologist's Impression: PROCEDURE: XR CHEST 2V INDICATIONS: intractable cough TECHNIQUE: 2 views of the chest were acquired. COMPARISON: [facility], CR, XR CHEST 2V, 02/06/2024, 13:03. FINDINGS: Surgical changes and devices: Pacemaker. Lungs and pleura: Lungs are clear. No pleural effusions or pneumothorax. Mediastinum: Mediastinal contours are normal. Heart size is normal. Bones and chest wall: No suspicious bony abnormalities. Soft tissues appear unremarkable. IMPRESSION: No evidence acute pulmonary process. Dictated by: Dewayne Parker M.D. on 02/09/2024 at 11:58 Approved by: Dewayne Parker M.D. on 02/09/2024 at 11:59 MDM Narrative Medical decision making narrative: Very well-appearing patient with lightheadedness after coughing fits. Patient states that he was referred to the ER due to lightheadedness, however he does state that this only occurs after coughing fits. Patient is conversational on room air without dyspnea but does have expiratory wheezes in upper lung garduno. He was currently on prednisone and doxycycline. Laboratory work is reviewed, unremarkable. Repeat two-view chest x-ray negative for acute findings. Patient had mild relief of wheezing with DuoNeb inhalers but still has some wheezing present. Respiratory panel positive for human metapneumovirus. 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 Patient was counseled on lab and imaging findings, we will discharge with albuterol inhaler and counseled to continue to take the antibiotics previously prescribed. He was recommended to follow up with his primary care physician Discharge Plan Departure Patient Disposition: Home Clinical Impression: Human metapneumovirus (hMPV) pneumonia Instructions: DI for Acute Bronchitis Activity Restrictions/Additional Instructions: FINISH YOUR PREVIOUSLY PRESCRIBED MEDICATIONS. THE ALBUTEROL INHALER MAY HELP WITH THE WHEEZING Prescriptions: New albuterol sulfate 90 mcg/actuation HFA aerosol inhaler 2 puff inhalation Q6H PRN (Reason: shortness of breath or wheezing) Qty: 8.5 0RF No Action prednisone 20 mg tablet 40 mg PO DAILY Qty: 10 0RF doxycycline hyclate 100 mg capsule 100 mg PO BID Qty: 14 0RF aspirin 81 mg Tablet,Delayed Release (Dr/Ec) 81 mg PO DAILY Qty: 0 losartan 50 mg tablet 50 mg PO BID Qty: 180 2RF omeprazole 20 mg capsule,delayed release(DR/EC) 20 mg PO DAILY Qty: 90 3RF atorvastatin 80 mg tablet 40 mg PO DAILY Qty: 90 3RF nitroglycerin 0.4 mg tablet, sublingual 0.4 mg SL Q5M PRN amlodipine 5 mg tablet 5 mg PO DAILY Qty: 90 3RF Referrals: Vahe Melendez MD [Primary Care Provider] - Stand Alone Forms: Patient Portal/API
[2024-02-09 11:40] LABS: Adenovirus Not Detected (Not Detect); B. parapertussis Not Detected (Not Detecte); Bordetella pertussis Not Detected (Not Detect); Chlamydophila pneumoniae Not Detected (Not Detect); Coronavirus 229E Not Detected (Not Detect); Coronavirus HKU1 Not Detected (Not Detect); Coronavirus NL 63 Not Detected (Not Detect); Coronavirus OC43 Not Detected (Not Detect); Human Metapneumovirus Detected (Not Detect); Human Rhinovirus/Enterovirus Not Detected (Not Detect); Influenza A Not Detected (Not Detect); Influenza B Not Detected (Not Detect); Mycoplasma pneumoniae Not Detected (Not Detect); Parainfluenza Virus 1 Not Detected (Not Detect); Parainfluenza Virus 2 Not Detected (Not Detect); Parainfluenza Virus 3 Not Detected (Not Detect); Parainfluenza Virus 4 Not Detected (Not Detect); Respiratory Syncytial Virus Not Detected (Not Detect); SARS- CoV-2 Not Detected (Not Detecte)
[2024-02-09 11:42] LABS: Add Manual Diff / Slide Review NO; Basophils Absolute Auto 0 /uL (0-100); Basophils Percent Auto 0.4 % (0-2); Eosinophils Absolute Auto 0 /uL (0-450); Eosinophils Percent Auto 0.3 % (2-4); Hematocrit 42.7 % (41-53); Hemoglobin 14.5 g/dL (13.5-17.5); Lymphocytes Absolute Auto 500 /uL (1100-4500); Lymphocytes Percent Auto 6.6 % (25-40); Mean Corpuscular Hemoglobin 31.5 PG (26-34); Mean Corpuscular Volume 92.8 fL (80-100); Monocytes Absolute Auto 500 /uL (0-900); Monocytes Percent Auto 5.9 % (3-14); Neutrophils Absolute Auto 7100 /uL (1500-7000); Neutrophils Percent Auto 86.8 % (50-75); Platelet Count 167 X10^3/uL (150-400); Red Blood Cell Count 4.61 X10^6/uL (4.5-5.9); Red Cell Distribution Width 13.1 % (11.6-14.8); White Blood Cell Count 8.2 X10^3/uL (4.5-11.0)
[2024-02-09] MEDS: ALBUTEROL 2.5 MG/3 ML NEB (ADULT) INH (11:43)
[2024-02-09 11:50] LABS: Prothrombin Time 11.2 SECONDS (9.4-12.5)
[2024-02-09 11:56] LABS: Alanine Aminotransferase 28 IU/L (<50); Albumin 4.2 g/dL (3.5-5.0); Albumin Globulin Ratio 1.2 (1.0-2.8); Alkaline Phosphatase 83 U/L (38-126); Aspartate Aminotransferase 29 IU/L (17-59); BUN Creatinine Ratio 22.9 (6-22); Bilirubin Total 0.7 mg/dL (0.2-1.3); Blood Urea Nitrogen 22 mg/dL (9-20); Calcium 9.9 mg/dL (8.4-10.2); Carbon Dioxide 24 mmol/L (22-32); Chloride 107 mmol/L (98-107); Estimated Glomerular Filt Rate > 60 mL/min (>60); Globulin 3.4 g/dL (1.7-4.1); Glucose 130 mg/dL (80-110); Lactate (Lactic Acid) 2.1 mmol/L (0.7-2.1); Potassium 3.9 mmol/L (3.4-5.1); Sodium 139 mmol/L (137-145); Total Protein 7.6 g/dL (6.3-8.2)
[2024-02-09 12:13] LABS: HEMOLYSIS 16 (0-50); NT-proBNP (BNP-Adult 18+) 512 pg/mL (<450); Troponin I < 0.012 ng/mL (0.01-0.034)
[2024-02-09 13:14] LABS: Reflexed Lactate in 2 Hours Y
== END 2024-02-09 13:15 | disposition home or self-care (01) ==
PROVIDERS: Emergency Provider Emergency Medicine; PCP Internal Medicine
DX: J12.3 Human metapneumovirus pneumonia (principal)
CPT/HCPCS: 36415; 71046; 80053; 83605; 83880; 84484; 85025; 85610; 87633; 93005; 93010; 99284; J7613

== ENCOUNTER → 2024-04-07 08:09 | Outpatient (CLI) | payer MEDICARE, OTHER, SELFPAY ==
[2024-04-07 09:33] LABS: Alanine Aminotransferase 23 IU/L (<50); Albumin 3.8 g/dL (3.5-5.0); Albumin Globulin Ratio 1.6 (1.0-2.8); Alkaline Phosphatase 91 U/L (38-126); Aspartate Aminotransferase 29 IU/L (17-59); BUN Creatinine Ratio 21.3 (6-22); Bilirubin Total 0.9 mg/dL (0.2-1.3); Blood Urea Nitrogen 26 mg/dL (9-20); Calcium 9.1 mg/dL (8.4-10.2); Carbon Dioxide 29 mmol/L (22-32); Chloride 107 mmol/L (98-107); Cholesterol 114 mg/dL (140-199); Estimated Glomerular Filt Rate 57 mL/min (>60); Globulin 2.4 g/dL (1.7-4.1); Glucose 96 mg/dL (80-110); HDL Cholesterol 45 mg/dL (40-60); HEMOLYSIS < 15 (0-50); LDL Cholesterol Calculated 58 mg/dL (<100); Potassium 4.5 mmol/L (3.4-5.1); Sodium 140 mmol/L (137-145); Total Protein 6.2 g/dL (6.3-8.2); Triglycerides 53 mg/dL (35-150)
== END ==
LOC: LAB 08:10
PROVIDERS: PCP Internal Medicine; Referring Provider Internal Medicine Cardiovascular Disease; Visit Provider Internal Medicine Cardiovascular Disease
DX: E78.00 Pure hypercholesterolemia, unspecified (principal)
CPT/HCPCS: 36415; 80053; 80061

== ENCOUNTER → 2024-06-13 10:27 | Outpatient (CLI) | payer MEDICARE, OTHER, SELFPAY ==
[2024-06-13 11:35] LABS: Magnesium 2.3 mg/dL (1.6-2.3)
[2024-06-13 12:04] LABS: Thyroid Stimulating Hormone 1.36 uIU/mL (0.47-4.68)
== END ==
PROVIDERS: PCP Internal Medicine; Referring Provider Internal Medicine Cardiovascular Disease; Visit Provider Internal Medicine Cardiovascular Disease
DX: I48.0 Paroxysmal atrial fibrillation (principal); I10 Essential (primary) hypertension
CPT/HCPCS: 36415; 83735; 84443

== ENCOUNTER → 2025-02-22 10:04 | Outpatient (CLI) | payer MEDICARE, OTHER, SELFPAY ==
[2025-02-22 11:07] LABS: Alanine Aminotransferase 26 IU/L (<50); Albumin 4.3 g/dL (3.5-5.0); Albumin Globulin Ratio 1.8 (1.0-2.8); Alkaline Phosphatase 98 U/L (38-126); Aspartate Aminotransferase 31 IU/L (17-59); BUN Creatinine Ratio 21.2 (6-22); Blood Urea Nitrogen 21 mg/dL (9-20); Calcium 9.8 mg/dL (8.4-10.2); Carbon Dioxide 27 mmol/L (22-32); Chloride 104 mmol/L (98-107); Cholesterol 128 mg/dL (140-199); Estimated Glomerular Filt Rate > 60 mL/min (>60); Globulin 2.4 g/dL (1.7-4.1); Glucose 92 mg/dL (70-99); HDL Cholesterol 43 mg/dL (40-60); HEMOLYSIS < 15 (0-50); LDL Cholesterol Calculated 74 mg/dL (<100); Magnesium 2.1 mg/dL (1.6-2.3); Potassium 4.3 mmol/L (3.4-5.1); Sodium 140 mmol/L (137-145); Total Protein 6.7 g/dL (6.3-8.2); Triglycerides 56 mg/dL (35-150)
== END ==
PROVIDERS: PCP Internal Medicine; Referring Provider Internal Medicine; Visit Provider Internal Medicine Cardiovascular Disease
DX: I10 Essential (primary) hypertension (principal); E78.00 Pure hypercholesterolemia, unspecified; I48.0 Paroxysmal atrial fibrillation
CPT/HCPCS: 36415; 80053; 80061; 83735